=== PATIENT | female | born 1935 ===

== ENCOUNTER 2023-09-01 14:35 | Inpatient (IN) | payer MEDICARE, OTHER ==
--- NOTE | 2023-09-01 16:04 | ED ---
Dizziness HPI - General Stated Complaint: chest/back pain Time Seen by Provider: 09/01/23 15:40 Source: patient, RN notes reviewed Mode of arrival: wheelchair - History of Present Illness Initial Comments: 87-year-old female with a history of hypertension and vertigo and hyperlipidemia who had a dizzy episode yesterday while being out shopping. Around 6:30 PM she had some slight memory issues struggling to know where she was and who she was she did recently moved here from [place] about 2 weeks prior. She had 1 episode nausea and vomiting during the night had some restless sleep now appears to be back to normal except she complains of some epigastric and right upper quadrant discomfort. Patient is states that the pain seemed to radiate to the shoulder area. No fevers chills sweats diarrhea no other current complaints no focal weaknesses. MD Complaint: dizziness - Related Data Home Medications Medication Instructions Recorded Confirmed Acetaminophen [Tylenol Arthritis] 650 - 1,300 mg PO Q8H PRN 09/01/23 09/01/23 Benazepril HCl 20 mg PO DAILY 09/01/23 09/01/23 Bimatoprost [Lumigan 0.01% Ophth 1 drop BOTH EYES HS 09/01/23 09/01/23 Soln] Calcium(Unknown Dose) 1 tab PO DAILY 09/01/23 09/01/23 Carboxymethylcellulose Sodium 1 drop BOTH EYES HS 09/01/23 09/01/23 [Refresh Tears] Citalopram Hydrobromide [CeleXA] 40 mg PO DAILY 09/01/23 09/01/23 Magnesium(Unknown Dose) 1 tab PO DAILY 09/01/23 09/01/23 Meclizine [Antivert] 25 mg PO TID PRN 09/01/23 09/01/23 Omeprazole [PriLOSEC] 20 mg PO DAILY 09/01/23 09/01/23 Pravastatin Sodium [Pravachol] 40 mg PO HS 09/01/23 09/01/23 Vitamin D3(Unknown Dose) 1 tab PO DAILY 09/01/23 09/01/23 acetaZOLAMIDE [Diamox] 250 mg PO DAILY 09/01/23 09/01/23 Allergies Allergy/AdvReac Type Severity Reaction Status Date / Time advocado Allergy Unknown Uncoded 09/01/23 15:03 bananas Allergy Unknown Uncoded 09/01/23 15:03 walnuts Allergy Unknown Uncoded 09/01/23 15:03 Review of Systems ROS Statement: Those systems with pertinent positive or pertinent negative responses have been documented in the HPI. ROS Other: All systems not noted in ROS Statement are negative. Past Medical History Past Medical History: Hyperlipidemia, Hypertension History of Any Multi-Drug Resistant Organisms: None Reported Past Surgical History: Hysterectomy, Orthopedic Surgery, Tonsillectomy Additional Past Surgical History / Comment(s): dylan right leg Past Psychological History: No Psychological Hx Reported Smoking Status: Current every day smoker Past Alcohol Use History: None Reported Past Drug Use History: None Reported General Exam - General Exam Comments Initial Comments: This is a well-developed well-nourished awake alert oriented x 4 female General appearance: alert, in no apparent distress Head exam: Present: atraumatic, normocephalic, normal inspection Eye exam: Present: normal appearance, PERRL, EOMI. Absent: scleral icterus, conjunctival injection, periorbital swelling ENT exam: Present: mucous membranes dry Neck exam: Present: normal inspection, full ROM, other (No stridor JVD or bruits). Absent: tenderness, meningismus, lymphadenopathy Respiratory exam: Present: normal lung sounds bilaterally. Absent: respiratory distress, wheezes, rales, rhonchi, stridor Cardiovascular Exam: Present: regular rate, normal rhythm, normal heart sounds. Absent: systolic murmur, diastolic murmur, rubs, gallop, clicks GI/Abdominal exam: Present: soft, normal bowel sounds. Absent: distended, guarding, rebound, rigid Rectal exam: Present: deferred Extremities exam: Present: normal inspection, full ROM, normal capillary refill. Absent: tenderness, pedal edema, joint swelling, calf tenderness Back exam: Present: normal inspection Neurological exam: Present: alert, oriented X3, CN II-XII intact Psychiatric exam: Present: normal affect, normal mood Skin exam: Present: warm, dry, intact, normal color. Absent: rash Course Vital Signs 09/01/23 14:54 Temperature 97.9 F Pulse Rate 86 Respiratory 18 Rate Blood Pressure 191/83 O2 Sat by Pulse 96 Oximetry Medical Decision Making - Medical Decision Making Patient's workup is incomplete ultrasound results pending patient does feel improved at this time however. Was pt. sent in by a medical professional or institution (Dr., PA, HAND SCRAPER, urgent care, hospital, or [facility]...) When possible be specific @ -No Did you speak to anyone other than the patient for history (EMS, parent, family, police, friend...)? What history was obtained from this source @ -The patient's daughter Did you review nursing and triage notes (agree or disagree)? Why? @ -I reviewed and agree with nursing and triage notes Were old charts reviewed (outside hosp., previous admission, EMS record, old EKG, old radiological studies, urgent care reports/EKG's, [facility] records)? Report findings @ -No old charts billable for review reviewed Differential Diagnosis (chest pain, altered mental status, abdominal pain women, abdominal pain men, vaginal bleeding, weakness, fever, dyspnea, syncope, headache, dizziness, GI bleed, back pain, seizure, CVA, palpatations, mental health, musculoskeletal)? @ -Vertigo, abdominal pain EKG interpreted by me (3pts min.). @ -As above EKG interpreted by me sinus rhythm with occasional ectopic premature complexes rate 81 parable 150 QRS duration 76 QT/QTc 340/378 nonspecific T wave configuration CT interpreted by me (1pt min.). @ -None done U/S interpreted by me (1pt. min.). @ -None done What testing was considered but not performed or refused? (CT, X-rays, U/S, labs)? Why? @ -None What meds were considered but not given or refused? Why? @ -None Did you discuss the management of the patient with other professionals (professionals i.e. RACHEL Phipps, HAND SCRAPER, lab, RT, psych nurse, social secretary, court officer, teacher, budget officer, case consultant)? Give summary @ -Eloisa Field covering for Dr. Zelaya Was smoking cessation discussed for >3mins.? @ -No Was critical care preformed (if so, how long)? @ -No Were there social determinants of health that impacted care today? How? (Homelessness, low income, unemployed, alcoholism, drug addiction, transportation, low edu. Level, literacy, decrease access to med. care, [facility], re hab)? @ -Just moved from [place] 2 weeks ago Was there de-escalation of care discussed even if they declined (Discuss DNR or withdrawal of care, Hospice)? DNR status @ -No What co-morbidities impacted this encounter? (DM, HTN, Smoking, COPD, CAD, Cancer, CVA, ARF, Chemo, Hep., AIDS, mental health diagnosis, sleep apnea, morbid obesity)? @ -None Was patient admitted / discharged? Hospital course, mention meds given and route, prescriptions, significant lab abnormalities, going to OR and other pertinent info. @ -Hospital course will be admitted for inpatient treatment of persistent vomiting and abdominal pain surgical consultation Undiagnosed new problem with uncertain prognosis? @ -No Drug Therapy requiring intensive monitoring for toxicity (Heparin, Nitro, Insulin, Cardizem)? @ -No Were any procedures done? @ -No Diagnosis/symptom? @ -Estrada pain, hypomagnesemia, hyperbilirubinemia, vertigo Acute, or Chronic, or Acute on Chronic? @ -Acute Uncomplicated (without systemic symptoms) or Complicated (systemic symptoms)? @ -Default Side effects of treatment? @ -No Exacerbation, Progression, or Severe Exacerbation? @ -No Poses a threat to life or bodily function? How? (Chest pain, [place], CO, pneumonia, PE, COPD, DKA, ARF, appy, cholecystitis, CVA, Diverticulitis, Homicidal, Suicidal, threat to staff... and all critical care pts) @ -No - Lab Data Result diagrams: 09/01/23 16:01 09/01/23 16:01 Lab Results 09/01/23 09/01/23 09/01/23 Range/Units 16:01 16:01 16:01 WBC 9.7 (3.8-10.6) k/uL RBC 4.33 (3.80-5.40) m/uL Hgb 14.6 (11.4-16.0) gm/dL Hct 43.8 (34.0-46.0) % MCV 101.0 H (80.0-100.0) fL MCH 33.6 (25.0-35.0) pg MCHC 33.3 (31.0-37.0) g/dL RDW 12.0 (11.5-15.5) % Plt Count 168 (150-450) k/uL MPV 6.7 Neutrophils % 90 % Lymphocytes % 3 % Monocytes % 6 % Eosinophils % 0 % Basophils % 0 % Neutrophils # 8.7 H (1.3-7.7) k/uL Lymphocytes # 0.3 L (1.0-4.8) k/uL Monocytes # 0.6 (0-1.0) k/uL Eosinophils # 0.0 (0-0.7) k/uL Basophils # 0.0 (0-0.2) k/uL Sodium 135 L (137-145) mmol/L Potassium 4.0 (3.5-5.1) mmol/L Chloride 103 (98-107) mmol/L Carbon Dioxide 26 (22-30) mmol/L Anion Gap 6 mmol/L BUN 15 (7-17) mg/dL Creatinine 0.57 (0.52-1.04) mg/dL Est GFR (CKD-EPI)AfAm >90 (>60 ml/min/1.73 sqM) Est GFR (CKD-EPI)NonAf 84 (>60 ml/min/1.73 sqM) Glucose 126 H (74-99) mg/dL Calcium 9.8 (8.4-10.2) mg/dL Magnesium 1.5 L (1.6-2.3) mg/dL Total Bilirubin 1.5 H (0.2-1.3) mg/dL AST 56 H (14-36) U/L ALT 26 (4-34) U/L Alkaline Phosphatase 71 (38-126) U/L Creatine Kinase 59 (30-135) U/L Troponin I <0.012 (0.000-0.034) ng/mL Total Protein 7.2 (6.3-8.2) g/dL Albumin 4.4 (3.5-5.0) g/dL Lipase 140 (23-300) U/L Urine Color Urine Appearance (Clear) Urine pH (5.0-8.0) Ur Specific [place] (1.001-1.035) Urine Protein (Negative) Urine Glucose (UA) (Negative) Urine Ketones (Negative) Urine Blood (Negative) Urine Nitrite (Negative) Urine Bilirubin (Negative) Urine Urobilinogen (<2.0) mg/dL Ur Leukocyte Esterase (Negative) Urine RBC (0-5) /hpf Urine WBC (0-5) /hpf Ur Squamous Epith Cells (0-4) /hpf Urine Mucus (None) /hpf 09/01/23 Range/Units 17:07 WBC (3.8-10.6) k/uL RBC (3.80-5.40) m/uL Hgb (11.4-16.0) gm/dL Hct (34.0-46.0) % MCV (80.0-100.0) fL MCH (25.0-35.0) pg MCHC (31.0-37.0) g/dL RDW (11.5-15.5) % Plt Count (150-450) k/uL MPV Neutrophils % % Lymphocytes % % Monocytes % % Eosinophils % % Basophils % % Neutrophils # (1.3-7.7) k/uL Lymphocytes # (1.0-4.8) k/uL Monocytes # (0-1.0) k/uL Eosinophils # (0-0.7) k/uL Basophils # (0-0.2) k/uL Sodium (137-145) mmol/L Potassium (3.5-5.1) mmol/L Chloride (98-107) mmol/L Carbon Dioxide (22-30) mmol/L Anion Gap mmol/L BUN (7-17) mg/dL Creatinine (0.52-1.04) mg/dL Est GFR (CKD-EPI)AfAm (>60 ml/min/1.73 sqM) Est GFR (CKD-EPI)NonAf (>60 ml/min/1.73 sqM) Glucose (74-99) mg/dL Calcium (8.4-10.2) mg/dL Magnesium (1.6-2.3) mg/dL Total Bilirubin (0.2-1.3) mg/dL AST (14-36) U/L ALT (4-34) U/L Alkaline Phosphatase (38-126) U/L Creatine Kinase (30-135) U/L Troponin I (0.000-0.034) ng/mL Total Protein (6.3-8.2) g/dL Albumin (3.5-5.0) g/dL Lipase (23-300) U/L Urine Color Yellow Urine Appearance Clear (Clear) Urine pH 6.5 (5.0-8.0) Ur Specific [place] 1.018 (1.001-1.035) Urine Protein 1+ H (Negative) Urine Glucose (UA) Negative (Negative) Urine Ketones 2+ H (Negative) Urine Blood Small H (Negative) Urine Nitrite Negative (Negative) Urine Bilirubin Negative (Negative) Urine Urobilinogen 2.0 (<2.0) mg/dL Ur Leukocyte Esterase Negative (Negative) Urine RBC 12 H (0-5) /hpf Urine WBC 1 (0-5) /hpf Ur Squamous Epith Cells <1 (0-4) /hpf Urine Mucus Rare H (None) /hpf Disposition Clinical Impression: Abdominal pain, Hypomagnesemia, Hyperbilirubinemia, Biliary colic, Nausea Disposition: ADMITTED IP TO THIS [facility] Condition: Fair Referrals: None,Stated [Primary Care Provider] - 1-2 days Time of Disposition: 21:15 Decision Date: 09/01/23 Decision Time: 21:15
[2023-09-01 16:14] LABS: Basophils % (A) 0 %; Eosinophils % (A) 0 %; HCT 43.8 % (34.0-46.0); HGB 14.6 gm/dL (11.4-16.0); Lymphocytes # (A) 0.3 k/uL (1.0-4.8); Lymphocytes % (A) 3 %; MCH 33.6 pg (25.0-35.0); MCHC 33.3 g/dL (31.0-37.0); Mean Platelet Volume 6.7; Monocytes # (A) 0.6 k/uL (0-1.0); Monocytes % (A) 6 %; Neutrophils # (A) 8.7 k/uL (1.3-7.7); Neutrophils % (A) 90 %; Platelet Count 168 k/uL (150-450); RBC 4.33 m/uL (3.80-5.40); WBC 9.7 k/uL (3.8-10.6)
[2023-09-01 16:56] LABS: ALT 26 U/L (4-34); AST 56 U/L (14-36); African American GFR (CKD) >90 (>60 ml/min/1.73 sqM); Albumin 4.4 g/dL (3.5-5.0); Alkaline Phosphatase 71 U/L (38-126); Anion Gap 6 mmol/L; Blood Urea Nitrogen 15 mg/dL (7-17); Calcium 9.8 mg/dL (8.4-10.2); Carbon Dioxide 26 mmol/L (22-30); Chloride 103 mmol/L (98-107); Creatine Kinase 59 U/L (30-135); Glucose 126 mg/dL (74-99); Lipase 140 U/L (23-300); Magnesium 1.5 mg/dL (1.6-2.3); Non-African American GFR(CKD) 84 (>60 ml/min/1.73 sqM); Sodium 135 mmol/L (137-145); Total Bilirubin 1.5 mg/dL (0.2-1.3); Total Protein 7.2 g/dL (6.3-8.2)
[2023-09-01 17:25] LABS: Appearance,Urine Clear (Clear); Bilirubin,Urine Negative (Negative); Blood,Urine Small (Negative); Color,Urine Yellow; Glucose,Urine (UA) Negative (Negative); Ketones,Urine 2+ (Negative); Leukocyte Esterase,Urine Negative (Negative); Mucus,Urine Rare /hpf; Nitrite,Urine Negative (Negative); PH, Urine 6.5 (5.0-8.0); Protein,Urine 1+ (Negative); RBC,Urine 12 /hpf (0-5); Specific Gravity,Urine 1.018 (1.001-1.035); Squamous Epithelial Cell,Urine <1 /hpf (0-4); WBC,Urine 1 /hpf (0-5)
[2023-09-01] MEDS: ONDANSETRON 4 MG/2 ML VIAL IVP STA (17:51)
[2023-09-01] MEDS: SODIUM CHLORIDE 0.9% 1,000 ML IV STA (17:54)
--- NOTE | 2023-09-01 19:23 | XR ---
EXAMINATION TYPE: XR chest 2V DATE OF EXAM: 09/01/2023 4:27 PM CLINICAL INDICATION:Female, 87 years old with history of Abdominal pain; [facility] COMPARISON: None TECHNIQUE: XR chest 2V. Frontal and lateral views of the chest.. FINDINGS: Lines/Tubes/Devices: No indwelling lines are seen. Heart/mediastinum: Heart appears mildly enlarged. The aorta shows atherosclerotic calcification and appears tortuous. Pulmonary vascularity: Not increased, Lungs/Pleura: There is no evidence of pleural effusion, focal consolidation, or pneumothorax. Minima l platelike atelectasis or linear scarring in the midlung zones. Background scattered chronic senesce nt changes. Musculoskeletal: No acute osseous abnormality demonstrated in the limits of the exam. Multilevel deg enerative changes of the spine with some straightening of the upper thoracic kyphosis and slight exag geration of the lower thoracic kyphosis. Other findings: No suggestion of subdiaphragmatic free air. IMPRESSION: No acute cardiopulmonary abnormality.
--- NOTE | 2023-09-01 19:30 | XR ---
EXAMINATION TYPE: XR KUB portable DATE OF EXAM: 09/01/2023 4:27 PM CLINICAL INDICATION:Female, 87 years old with history of Abdominal pain; [facility] COMPARISON: None. TECHNIQUE: Upright radiographic view/s of the abdomen/pelvis obtained. FINDINGS: Exam limited by patient body habitus. No evidence of pneumoperitoneum. Pattern is nonspecific, likely nonobstructive without dilated loops of small bowel seen. There is mil d to moderate stool in the colon mixed with some gas, greatest in the rectum and right colon. Multilevel degenerative changes of the spine with prominent lumbar levocurvature. No pathologic calci fications can be seen. Abdominal aortic calcification is suspected. Several surgical clips project ov er the GE junction region. IMPRESSION: 1. Nonspecific, likely nonobstructive bowel gas pattern. 2. Mild to moderate stool in the right colon and rectum. 3. No free air detected.
[2023-09-01] MEDS: MAGNESIUM SULFATE-D5W PMX 1 GM in DEXTROSE/WATER 1 100ML.BAG IVPB ONE (19:54)
[2023-09-01] MEDS ORDERED: ONDANSETRON 4 MG/2 ML VIAL IVP PRN (21:15)
[2023-09-01] MEDS ORDERED: NALOXONE 0.4 MG/ML 1 ML VIAL IV PRN (21:15)
[2023-09-01] MEDS: FAMOTIDINE 20 MG/2 ML VIAL IV STA (21:34)
--- NOTE | 2023-09-01 22:58 | US ---
EXAMINATION TYPE: US gallbladder DATE OF EXAM: 09/01/2023 COMPARISON: NONE CLINICAL INDICATION: Female, 87 years old with history of Right upper quadrant abdominal pain; Nausea , pain TECHNIQUE: Multiple sonographic images of the right upper quadrant are obtained. FINDINGS: EXAM MEASUREMENTS: Liver Length: 14.4 cm Gallbladder Wall: 0.2 cm CBD: 1.3 cm Right Kidney: 9.1 x 3.5 x 4.5 cm INCIDENT MANAGER NOTES: Pancreas: Obscured by bowel gas Liver: Limited views due to overlying bowel gas, visualized portions appeared wnl Gallbladder: Distended with probable sludge Evidence for sonographic Tate's sign: No CBD: Dilated Right Kidney: No evidence of hydro IMPRESSION: 1. Pancreas obscured by bowel gas. 2. Gallbladder is distended with probable intraluminal sludge. No sonographic Tate's sign elicited . 3. Dilated CBD. Correlate clinically, with LFTs.
[2023-09-02] MEDS: KETOROLAC 15 MG/ML 1 ML VIAL IVP PRN (01:49)
[2023-09-02] MEDS: MORPHINE SULFATE 4 MG/ML SYRINGE IVP STA (02:17)
[2023-09-02 05:41] LABS: ALT 23 U/L (4-34); AST 36 U/L (14-36); African American GFR (CKD) >90 (>60 ml/min/1.73 sqM); Albumin 3.9 g/dL (3.5-5.0); Albumin/Globulin Ratio 1.6; Alkaline Phosphatase 67 U/L (38-126); Anion Gap 5 mmol/L; Blood Urea Nitrogen 14 mg/dL (7-17); Calcium 8.6 mg/dL (8.4-10.2); Carbon Dioxide 26 mmol/L (22-30); Chloride 101 mmol/L (98-107); Globulin 2.5 g/dL; Glucose 118 mg/dL (74-99); Non-African American GFR(CKD) 81 (>60 ml/min/1.73 sqM); Potassium 3.8 mmol/L (3.5-5.1); Sodium 132 mmol/L (137-145); Total Bilirubin 1.5 mg/dL (0.2-1.3); Total Protein 6.4 g/dL (6.3-8.2)
--- NOTE | 2023-09-02 11:01 | P.CRDCN ---
History of Present Illness History of present illness: HISTORY OF PRESENT ILLNESS: This is a 87-year-old female with a past medical history significant for hypertension and hyperlipidemia. Patient does not follow with a manager business planning. We have been asked to see the patient in consultation for elevated troponins. Patient examined at the bedside in the emergency room. Patient is confused at the time of examination and is a poor historian. There is no family present. According to the ER documentation, the patient initially presented to hospital with an episode of dizziness. Patient was also complaining of nausea and vomiting with right upper quadrant abdominal pain. The patient continues to report abdominal pain at the time of examination. She denies any chest pain or pressure. She denies any shortness of breath. Vital signs are stable. Patient is febrile this morning with a fever of 101.1. DIAGNOSTICS: - EKG reveals sinus mechanism with nonspecific ST-T wave changes - Chest xray negative for acute process - Gallbladder ultrasound, gallbladder is distended with probable intraluminal sludge. No sonographic Tate sign elicited. Common bile duct dilated. - Laboratory data: WBC 9.7. Hemoglobin 14.6. Platelet count 168. Sodium 132. Potassium 3.8. BUN 14. Creatinine 0.65. Magnesium 1.5. Bilirubin 1.5. AST 56. ALT 26. Troponin 0.012. 0.016. 0.044. - Current home cardiac medications include pravastatin 40 mg at night and benazepril 20 mg daily. REVIEW OF SYSTEMS: At the time of my exam: CONSTITUTIONAL: Denies fever or chills. HEENT: Denies blurred vision, vision changes, or eye pain. Denies hemoptysis CARDIOVASCULAR: Denies chest pain. Denies orthopnea. Denies PND. Denies palpitations RESPIRATORY: Denies shortness of breath. GASTROINTESTINAL: Reports abdominal pain. Denies nausea or vomiting. HEMATOLOGIC: Denies bleeding disorders. GENITOURINARY: Denies any blood in urine. SKIN: Denies pruitis. Denies rash. PHYSICAL EXAM: VITAL SIGNS: Reviewed. GENERAL: Well-developed in no acute distress. HEENT: Head is normocephalic. Pupils are equal, round. Sclerae anicteric. Mucous membranes of the mouth are moist. Neck supple. No JVD or thyromegaly LUNGS: Respirations even and unlabored. Lungs essentially clear to auscultation bilaterally. HEART: Regular rate and rhythm. S1 and S2 heard. ABDOMEN: Soft. Nondistended. Tenderness upon palpation EXTREMITIES: Normal range of motion. No clubbing or cyanosis. Peripheral pulses intact. No lower extremity edema NEUROLOGIC: Awake and alert. Oriented x 3. ASSESSMENT: Febrile illness Abdominal pain with possible acute cholecystitis Abnormal troponin, likely secondary to above, no evidence of acute coronary syndrome Hypomagnesemia Hypertension Hyperlipidemia PLAN: An acute coronary but has been ruled out Obtain 2D echo to assess cardiac structure and function Resume home cardiac medications Patient is at moderate to high risk to undergo surgery secondary to age and comorbidities. However there are no absolute contraindications for patient to proceed Further recommendations pending patient course Nurse practitioner note has been reviewed by physician. Signing provider agrees with the documented findings, assessment, and plan of care documented by CORRECTION OFFICER as a scribe. Past Medical History Past Medical History: Hyperlipidemia, Hypertension History of Any Multi-Drug Resistant Organisms: None Reported Past Surgical History: Hysterectomy, Orthopedic Surgery, Tonsillectomy Additional Past Surgical History / Comment(s): dylan right leg Past Psychological History: No Psychological Hx Reported Smoking Status: Current every day smoker Past Alcohol Use History: None Reported Past Drug Use History: None Reported Medications and Allergies Home Medications Medication Instructions Recorded Confirmed Type Acetaminophen [Tylenol Arthritis] 650 - 1,300 mg PO Q8H PRN 09/01/23 09/01/23 History Benazepril HCl 20 mg PO DAILY 09/01/23 09/01/23 History Bimatoprost [Lumigan 0.01% Ophth 1 drop BOTH EYES HS 09/01/23 09/01/23 History Soln] Calcium(Unknown Dose) 1 tab PO DAILY 09/01/23 09/01/23 History Carboxymethylcellulose Sodium 1 drop BOTH EYES HS 09/01/23 09/01/23 History [Refresh Tears] Citalopram Hydrobromide [CeleXA] 40 mg PO DAILY 09/01/23 09/01/23 History Magnesium(Unknown Dose) 1 tab PO DAILY 09/01/23 09/01/23 History Meclizine [Antivert] 25 mg PO TID PRN 09/01/23 09/01/23 History Omeprazole [PriLOSEC] 20 mg PO DAILY 09/01/23 09/01/23 History Pravastatin Sodium [Pravachol] 40 mg PO HS 09/01/23 09/01/23 History Vitamin D3(Unknown Dose) 1 tab PO DAILY 09/01/23 09/01/23 History acetaZOLAMIDE [Diamox] 250 mg PO DAILY 09/01/23 09/01/23 History Allergies Allergy/AdvReac Type Severity Reaction Status Date / Time advocado Allergy Unknown Uncoded 09/01/23 15:03 bananas Allergy Unknown Uncoded 09/01/23 15:03 walnuts Allergy Unknown Uncoded 09/01/23 15:03 Physical Exam Vitals: Vital Signs Temp Pulse Pulse Resp BP Pulse Ox 09/02/23 10:00 101.1 F H 100 16 124/73 98 09/02/23 09:00 94 16 177/83 98 09/02/23 08:06 77 09/02/23 08:00 77 16 152/81 95 09/02/23 07:00 70 16 150/72 94 L 09/02/23 06:39 73 16 137/68 94 L 09/02/23 06:31 97.2 F L 09/02/23 02:56 92 16 136/74 95 09/02/23 01:51 92 18 193/98 95 09/01/23 21:30 62 20 122/65 98 09/01/23 14:54 97.9 F 86 18 191/83 96 Results 09/01/23 16:01 09/02/23 03:54 Cardiac Enzymes 09/01/23 09/01/23 09/01/23 Range/Units 16:01 16:01 23:56 AST 56 H (14-36) U/L Troponin I <0.012 0.016 (0.000-0.034) ng/mL 09/02/23 09/02/23 Range/Units 03:54 03:54 AST 36 (14-36) U/L Troponin I 0.044 H* (0.000-0.034) ng/mL CBC 09/01/23 Range/Units 16:01 WBC 9.7 (3.8-10.6) k/uL RBC 4.33 (3.80-5.40) m/uL Hgb 14.6 (11.4-16.0) gm/dL Hct 43.8 (34.0-46.0) % Plt Count 168 (150-450) k/uL Comprehensive Metabolic Panel 09/01/23 09/02/23 Range/Units 16:01 03:54 Sodium 135 L 132 L (137-145) mmol/L Potassium 4.0 3.8 (3.5-5.1) mmol/L Chloride 103 101 (98-107) mmol/L Carbon Dioxide 26 26 (22-30) mmol/L BUN 15 14 (7-17) mg/dL Creatinine 0.57 0.65 (0.52-1.04) mg/dL Glucose 126 H 118 H (74-99) mg/dL Calcium 9.8 8.6 (8.4-10.2) mg/dL AST 56 H 36 (14-36) U/L ALT 26 23 (4-34) U/L Alkaline Phosphatase 71 67 (38-126) U/L Total Protein 7.2 6.4 (6.3-8.2) g/dL Albumin 4.4 3.9 (3.5-5.0) g/dL Current Medications Generic Name Dose Route Start Last Admin Trade Name Freq PRN Reason Stop Dose Admin Artificial Tears 1 drops 09/02/23 21:00 Artificial Tears-Hypromellose Drops 15 Ml Btl BOTH EYES [facility] Sodium Chloride 1,000 mls @ 130 mls/hr 09/01/23 21:15 Saline 0.9% IV .[id number] [facility] Ketorolac Tromethamine 15 mg 09/01/23 21:15 09/02/23 01:49 Ketorolac 15 Mg/Ml 1 Ml Vial IVP 09/04/23 21:17 15 mg Q6HR PRN Administration Moderate Pain (Scale 4 to 6) Latanoprost 1 drops 09/02/23 21:00 Latanoprost 0.005% Ophth Drops 2.5 Ml Btl BOTH EYES [facility] Lisinopril 20 mg 09/02/23 09:00 Lisinopril 20 Mg Tab PO DAILY JOSSELYN Naloxone HCl 0.2 mg 09/01/23 21:15 Naloxone 0.4 Mg/Ml 1 Ml Vial IV Q2M PRN Opioid Reversal Ondansetron HCl 4 mg 09/01/23 21:15 Ondansetron 4 Mg/2 Ml Vial IVP Q8HR PRN Nausea And Vomiting Pravastatin Sodium 40 mg 09/02/23 21:00 Pravastatin Sodium 40 Mg Tab PO HS [facility] 09/01/23 16:01 09/02/23 03:54
[2023-09-02] MEDS: lisinopriL 20 MG TAB PO SCH (11:11)
--- NOTE | 2023-09-02 13:08 | P.GSCN ---
History of Present Illness Consult date: 09/02/23 History of present illness: CHIEF COMPLAINT: Altered mental status HISTORY OF PRESENT ILLNESS: This is a 87-year-old female who presented with altered mental status and abdominal pain. History was obtained from patient's chart. Patient is confused, but she is able to say she has abdominal pain. Per patient's chart she had been shopping yesterday and had episode of dizziness. Around 630 last night patient had memory issues with difficulty of knowing where she was and who she was. She had an episode of vomiting and nausea. She had been complaining of right upper quadrant and epigastric pain. Patient did have an elevated troponin. She has been evaluated by cardiology. They reported no contraindication for surgery but considered patient to moderate risk for surgery. Patient's ultrasound had reported gallbladder is distended with probable intraluminal sludge. Dilated CBD, 1.3 cm. Patient had mildly elevated AST and total bilirubin. Patient does have pain to the right upper quadrant and remains confused. Patient did have fevers this morning of 101.1. Past surgical history includes hysterectomy. No blood thinners reported. PAST MEDICAL HISTORY: Hyperlipidemia, hypertension PAST SURGICAL HISTORY: Hysterectomy, Orthopedic Surgery, Tonsillectomy MEDICATIONS: See below ALLERGIES: See below SOCIAL HISTORY: No illicit drug use. REVIEW OF SYSTEMS: CONSTITUTIONAL: Denies fever or chills. HEENT: Denies blurred vision, vision changes, or eye pain. Denies hemoptysis CARDIOVASCULAR: Denies chest pain or pressure. RESPIRATORY: No shortness of breath. GASTROINTESTINAL: See HPI for pertinent findings HEMATOLOGIC: Denies bleeding disorders. GENITOURINARY: Denies any blood in urine or increased urinary frequency. SKIN: Denies pruitis. Denies rash. PHYSICAL EXAM: VITAL SIGNS: Reviewed GENERAL: no acute distress. HEENT: No sclera icterus. Extraocular movements grossly intact. Moist buccal mucosa. Head is atraumatic, normocephalic. No nasal drainage. ABDOMEN: Soft. Nondistended. Right upper quadrant tenderness with palpation NEUROLOGIC: Awake. Confused LABORATORY DATA: WBC 9.7 Hgb 14.6 platelets 168 Sodium is 132 potassium 3.8 creatinine 0.65 Magnesium 1.5 Total bilirubin 1.5 AST 56 down to 36 ALT 23 alk phos 67 Troponin 0.044 lipase 140 IMAGING: Gallbladder ultrasound reports gallbladder is distended with probable intraluminal sludge. No Tate sign elicited. Dilated CBD. KUB x-ray nonspecific likely nonobstructive bowel gas pattern. Mild to moderate stool in the right colon and rectum. No free air to detected Chest x-ray reports no acute cardiopulmonary abnormality ASSESSMENT: 1. Acute cholecystitis. Ultrasound reported distended gallbladder with intraluminal sludge and dilated CBD. 2. Mildly elevated AST and total bilirubin 3. Hypomagnesemia 4. Mildly elevated troponin. Evaluated by cardiology PLAN: -Patient scheduled for laparoscopic cholecystectomy today with Dr. Blancas -Keep patient n.p.o. -Patient having fevers. Antibiotics started. -Continue IV fluids -continue supportive care -Repeat magnesium level -Continue pain management Physician Dog Handler note has been reviewed by physician. Signing provider agrees with the documented findings, assessment, and plan of care. Past Medical History Past Medical History: Hyperlipidemia, Hypertension History of Any Multi-Drug Resistant Organisms: None Reported Past Surgical History: Hysterectomy, Orthopedic Surgery, Tonsillectomy Additional Past Surgical History / Comment(s): dylan right leg Past Psychological History: No Psychological Hx Reported Smoking Status: Current every day smoker Past Alcohol Use History: None Reported Past Drug Use History: None Reported Medications and Allergies Home Medications Medication Instructions Recorded Confirmed Type Acetaminophen [Tylenol Arthritis] 650 - 1,300 mg PO Q8H PRN 09/01/23 09/01/23 History Benazepril HCl 20 mg PO DAILY 09/01/23 09/01/23 History Bimatoprost [Lumigan 0.01% Ophth 1 drop BOTH EYES HS 09/01/23 09/01/23 History Soln] Calcium(Unknown Dose) 1 tab PO DAILY 09/01/23 09/01/23 History Carboxymethylcellulose Sodium 1 drop BOTH EYES HS 09/01/23 09/01/23 History [Refresh Tears] Citalopram Hydrobromide [CeleXA] 40 mg PO DAILY 09/01/23 09/01/23 History Magnesium(Unknown Dose) 1 tab PO DAILY 09/01/23 09/01/23 History Meclizine [Antivert] 25 mg PO TID PRN 09/01/23 09/01/23 History Omeprazole [PriLOSEC] 20 mg PO DAILY 09/01/23 09/01/23 History Pravastatin Sodium [Pravachol] 40 mg PO HS 09/01/23 09/01/23 History Vitamin D3(Unknown Dose) 1 tab PO DAILY 09/01/23 09/01/23 History acetaZOLAMIDE [Diamox] 250 mg PO DAILY 09/01/23 09/01/23 History Allergies Allergy/AdvReac Type Severity Reaction Status Date / Time advocado Allergy Unknown Uncoded 09/01/23 15:03 bananas Allergy Unknown Uncoded 09/01/23 15:03 walnuts Allergy Unknown Uncoded 09/01/23 15:03 Surgical - Exam Vital Signs Temp Pulse Resp BP Pulse Ox 97.9 F 86 18 191/83 96 09/01/23 14:54 09/01/23 14:54 09/01/23 14:54 09/01/23 14:54 09/01/23 14:54 Results - Labs 09/01/23 16:01 09/02/23 03:54 Abnormal Lab Results - Last 24 Hours (Table) 09/01/23 09/01/23 09/01/23 Range/Units 16:01 16:01 17:07 MCV 101.0 H (80.0-100.0) fL Neutrophils # 8.7 H (1.3-7.7) k/uL Lymphocytes # 0.3 L (1.0-4.8) k/uL Sodium 135 L (137-145) mmol/L Glucose 126 H (74-99) mg/dL Magnesium 1.5 L (1.6-2.3) mg/dL Total Bilirubin 1.5 H (0.2-1.3) mg/dL AST 56 H (14-36) U/L Troponin I (0.000-0.034) ng/mL Urine Protein 1+ H (Negative) Urine Ketones 2+ H (Negative) Urine Blood Small H (Negative) Urine RBC 12 H (0-5) /hpf Urine Mucus Rare H (None) /hpf 09/02/23 09/02/23 Range/Units 03:54 03:54 MCV (80.0-100.0) fL Neutrophils # (1.3-7.7) k/uL Lymphocytes # (1.0-4.8) k/uL Sodium 132 L (137-145) mmol/L Glucose 118 H (74-99) mg/dL Magnesium (1.6-2.3) mg/dL Total Bilirubin 1.5 H (0.2-1.3) mg/dL AST (14-36) U/L Troponin I 0.044 H* (0.000-0.034) ng/mL Urine Protein (Negative) Urine Ketones (Negative) Urine Blood (Negative) Urine RBC (0-5) /hpf Urine Mucus (None) /hpf Diabetes panel 09/01/23 09/02/23 Range/Units 16:01 03:54 Sodium 135 L 132 L (137-145) mmol/L Potassium 4.0 3.8 (3.5-5.1) mmol/L Chloride 103 101 (98-107) mmol/L Carbon Dioxide 26 26 (22-30) mmol/L BUN 15 14 (7-17) mg/dL Creatinine 0.57 0.65 (0.52-1.04) mg/dL Glucose 126 H 118 H (74-99) mg/dL Calcium 9.8 8.6 (8.4-10.2) mg/dL AST 56 H 36 (14-36) U/L ALT 26 23 (4-34) U/L Alkaline Phosphatase 71 67 (38-126) U/L Total Protein 7.2 6.4 (6.3-8.2) g/dL Albumin 4.4 3.9 (3.5-5.0) g/dL Calcium panel 09/01/23 09/02/23 Range/Units 16:01 03:54 Calcium 9.8 8.6 (8.4-10.2) mg/dL Albumin 4.4 3.9 (3.5-5.0) g/dL Pituitary panel 09/01/23 09/02/23 Range/Units 16:01 03:54 Sodium 135 L 132 L (137-145) mmol/L Potassium 4.0 3.8 (3.5-5.1) mmol/L Chloride 103 101 (98-107) mmol/L Carbon Dioxide 26 26 (22-30) mmol/L BUN 15 14 (7-17) mg/dL Creatinine 0.57 0.65 (0.52-1.04) mg/dL Glucose 126 H 118 H (74-99) mg/dL Calcium 9.8 8.6 (8.4-10.2) mg/dL Adrenal panel 09/01/23 09/02/23 Range/Units 16:01 03:54 Sodium 135 L 132 L (137-145) mmol/L Potassium 4.0 3.8 (3.5-5.1) mmol/L Chloride 103 101 (98-107) mmol/L Carbon Dioxide 26 26 (22-30) mmol/L BUN 15 14 (7-17) mg/dL Creatinine 0.57 0.65 (0.52-1.04) mg/dL Glucose 126 H 118 H (74-99) mg/dL Calcium 9.8 8.6 (8.4-10.2) mg/dL Total Bilirubin 1.5 H 1.5 H (0.2-1.3) mg/dL AST 56 H 36 (14-36) U/L ALT 26 23 (4-34) U/L Alkaline Phosphatase 71 67 (38-126) U/L Total Protein 7.2 6.4 (6.3-8.2) g/dL Albumin 4.4 3.9 (3.5-5.0) g/dL
--- NOTE | 2023-09-02 13:24 | P.HPIM ---
History of Present Illness Patient pleasant 87-year-old female came in with altered mental status and also having abdominal pain bilateral upper quadrants patient has a positive Tate sign on the right side patient had a CT scan of the abdomen which showed biliary sludge and patient was evaluated by general surgery, planning on laparoscopic cholecystectomy. Patient has 2 sets of troponins that are within normal limits with probably slightly elevated because of future cardiology was consulted. Cardiology evaluated the patient this elevation is probably secondary to infection. Patient had a low-grade fever today. Patient is alert oriented x 3 when I evaluate the patient patient confusion resolved patient received Zosyn and is presently on Zosyn at this time. He is Negative except for the chest. REVIEW OF SYSTEMS: CONSTITUTIONAL: No fever, no malaise, no fatigue. HEENT: No recent visual problems or hearing problems. Denied any sore throat. CARDIOVASCULAR: No chest pain, orthopnea, PND, no palpitations, no syncope. PULMONARY: No shortness of breath, no cough, no hemoptysis. GASTROINTESTINAL: As mentioned in HPI NEUROLOGICAL: No headaches, no weakness, no numbness. HEMATOLOGICAL: Denies any bleeding or petechiae. GENITOURINARY: Denies any burning micturition, frequency, or urgency. MUSCULOSKELETAL/RHEUMATOLOGICAL: Denies any joint pain, swelling, or any muscle pain. ENDOCRINE: Denies any polyuria or polydipsia. The rest of the 14-point review of systems is negative. PHYSICAL EXAMINATION: GENERAL: The patient is alert and oriented x3, not in any acute distress. Well developed, well nourished. HEENT: Pupils are round and equally reacting to light. EOMI. No scleral icterus. No conjunctival pallor. Normocephalic, atraumatic. No pharyngeal erythema. No thyromegaly. CARDIOVASCULAR: S1 and S2 present. No murmurs, rubs, or gallops. PULMONARY: Chest is clear to auscultation, no wheezing or crackles. ABDOMEN: Soft, tenderness in the right upper quadrant positive Tate sign, nondistended, normoactive bowel sounds. No palpable organomegaly. MUSCULOSKELETAL: No joint swelling or deformity. EXTREMITIES: No cyanosis, clubbing, or pedal edema. NEUROLOGICAL: Gross neurological examination did not reveal any focal deficits. SKIN: No rashes. Assessment and plan -Sepsis: Possibly secondary to biliary sludge cholecystitis, continue with IV Zosyn and patient probably will need cholecystectomy General surgery evaluation -Mild elevation of troponin: Secondary to sepsis further intervention as per cardiology -Hypertension -Hypomagnesemia magnesium will be replaced -Hyperlipidemia DVT prophylaxis: Lovenox -GI prophylaxis Pepcid Past Medical History Past Medical History: Hyperlipidemia, Hypertension History of Any Multi-Drug Resistant Organisms: None Reported Past Surgical History: Hysterectomy, Orthopedic Surgery, Tonsillectomy Additional Past Surgical History / Comment(s): dylan right leg Past Psychological History: No Psychological Hx Reported Smoking Status: Current every day smoker Past Alcohol Use History: None Reported Past Drug Use History: None Reported Medications and Allergies Home Medications Medication Instructions Recorded Confirmed Type Acetaminophen [Tylenol Arthritis] 650 - 1,300 mg PO Q8H PRN 09/01/23 09/01/23 History Benazepril HCl 20 mg PO DAILY 09/01/23 09/01/23 History Bimatoprost [Lumigan 0.01% Ophth 1 drop BOTH EYES HS 09/01/23 09/01/23 History Soln] Calcium(Unknown Dose) 1 tab PO DAILY 09/01/23 09/01/23 History Carboxymethylcellulose Sodium 1 drop BOTH EYES HS 09/01/23 09/01/23 History [Refresh Tears] Citalopram Hydrobromide [CeleXA] 40 mg PO DAILY 09/01/23 09/01/23 History Magnesium(Unknown Dose) 1 tab PO DAILY 09/01/23 09/01/23 History Meclizine [Antivert] 25 mg PO TID PRN 09/01/23 09/01/23 History Omeprazole [PriLOSEC] 20 mg PO DAILY 09/01/23 09/01/23 History Pravastatin Sodium [Pravachol] 40 mg PO HS 09/01/23 09/01/23 History Vitamin D3(Unknown Dose) 1 tab PO DAILY 09/01/23 09/01/23 History acetaZOLAMIDE [Diamox] 250 mg PO DAILY 09/01/23 09/01/23 History Allergies Allergy/AdvReac Type Severity Reaction Status Date / Time advocado Allergy Unknown Uncoded 09/01/23 15:03 bananas Allergy Unknown Uncoded 09/01/23 15:03 walnuts Allergy Unknown Uncoded 09/01/23 15:03 Physical Exam Vitals: Vital Signs Temp Pulse Pulse Resp BP Pulse Ox 09/02/23 12:00 100.1 F H 92 16 105/68 96 09/02/23 10:00 101.1 F H 100 16 124/73 98 09/02/23 09:00 94 16 177/83 98 09/02/23 08:06 77 09/02/23 08:00 77 16 152/81 95 09/02/23 07:00 70 16 150/72 94 L 09/02/23 06:39 73 16 137/68 94 L 09/02/23 06:31 97.2 F L 09/02/23 02:56 92 16 136/74 95 09/02/23 01:51 92 18 193/98 95 09/01/23 21:30 62 20 122/65 98 09/01/23 14:54 97.9 F 86 18 191/83 96 Results CBC & Chem 7: 09/01/23 16:01 09/02/23 03:54 Labs: Abnormal Lab Results - Last 24 Hours (Table) 09/01/23 09/01/23 09/01/23 Range/Units 16:01 16:01 17:07 MCV 101.0 H (80.0-100.0) fL Neutrophils # 8.7 H (1.3-7.7) k/uL Lymphocytes # 0.3 L (1.0-4.8) k/uL Sodium 135 L (137-145) mmol/L Glucose 126 H (74-99) mg/dL Magnesium 1.5 L (1.6-2.3) mg/dL Total Bilirubin 1.5 H (0.2-1.3) mg/dL AST 56 H (14-36) U/L Troponin I (0.000-0.034) ng/mL Urine Protein 1+ H (Negative) Urine Ketones 2+ H (Negative) Urine Blood Small H (Negative) Urine RBC 12 H (0-5) /hpf Urine Mucus Rare H (None) /hpf 09/02/23 09/02/23 Range/Units 03:54 03:54 MCV (80.0-100.0) fL Neutrophils # (1.3-7.7) k/uL Lymphocytes # (1.0-4.8) k/uL Sodium 132 L (137-145) mmol/L Glucose 118 H (74-99) mg/dL Magnesium (1.6-2.3) mg/dL Total Bilirubin 1.5 H (0.2-1.3) mg/dL AST (14-36) U/L Troponin I 0.044 H* (0.000-0.034) ng/mL Urine Protein (Negative) Urine Ketones (Negative) Urine Blood (Negative) Urine RBC (0-5) /hpf Urine Mucus (None) /hpf
[2023-09-02] MEDS: ACETAMINOPHEN TAB 325 MG TAB PO PRN (14:03)
[2023-09-02] MEDS: SODIUM CHLORIDE 0.9% 1,000 ML IV SCH (14:19)
[2023-09-02] MEDS: PIPERACILLIN-TAZOBACTAM 3.375 GM in SODIUM CHLORIDE 0.9% 100 ML IVPB STA (14:21)
[2023-09-02] MEDS: MAGNESIUM SULFATE-D5W PMX 1 GM in DEXTROSE/WATER 1 100ML.BAG IVPB SCH (15:58)
[2023-09-02] MEDS: PIPERACILLIN-TAZOBACTAM 3.375 GM in SODIUM CHLORIDE 0.9% 100 ML IVPB SCH (18:10)
--- NOTE | 2023-09-02 19:38 | CA ---
Transthoracic Echo Report Name: Zakiya Ghotra Age: 87 Gender: F : 1935 Exam Date: 09/02/2023 11:24 Exam Location: [facility] Ht (in): 59 Wt (lb): 108 Ordering Physician: Baylee Mosqueda Attending/Referring Phys: [id number], Panda Channel [employer] St[employer]oles Tatyana Vega RDCS Procedure CPT: Indications: LV function, surgical clearance Cardiac Hx: Technical Quality: Fair Contrast 1: Total Dose (mL): Contrast 2: Total Dose (mL): MEASUREMENTS (Male / Female) Normal Values 2D ECHO LV Diastolic Diameter PLAX 3.2 cm 4.2 - 5.9 / 3.9 - 5.3 cm LV Systolic Diameter PLAX 2.6 cm IVS Diastolic Thickness 1.5 cm 0.6 - 1.0 / 0.6 - 0.9 cm LVPW Diastolic Thickness 1.6 cm 0.6 - 1.0 / 0.6 - 0.9 cm LV Relative Wall Thickness 0.9 RV Internal Dim ED PLAX 2.4 cm LVOT Diameter 1.7 cm LA Systolic Diameter LX 4.1 cm 3.0 - 4.0 / 2.7 - 3.8 cm LV Diastolic Volume MOD BP 32.9 cm??? 67 - 155 / 56 - 104 cm??? LV Systolic Volume MOD BP 10.8 cm??? 22 - 58 / 19 - 49 cm??? LV Ejection Fraction MOD BP 67.2 % >= 55 % LV Cardiac Index MOD BP 1587.5 cm???/min???m??? LV Diastolic Volume MOD 4C 34.6 cm??? LV Systolic Volume MOD 4C 12.8 cm??? LV Ejection Fraction MOD 4C 63.1 % LV Cardiac Index MOD 4C 1568.3 cm???/min???m??? LV Diastolic Length 4C 5.6 cm LV Systolic Length 4C 4.7 cm LV Diastolic Volume MOD 2C 28.7 cm??? LV Systolic Volume MOD 2C 9.0 cm??? LV Ejection Fraction MOD 2C 68.7 % LV Cardiac Index MOD 2C 1416.4 cm???/min???m??? LV Diastolic Length 2C 5.1 cm LV Systolic Length 2C 4.6 cm LA Volume 63.0 cm??? 18 - 58 / 22 - 52 cm??? LA Volume Index 43.9 cm???/m??? 16 - 28 cm???/m??? M-MODE Aortic Root Diameter MM 3.2 cm LA Systolic Diameter MM 3.6 cm LA Ao Ratio MM 1.1 AV Cusp Separation MM 1.8 cm DOPPLER AV Peak Velocity 161.3 cm/s AV Peak Gradient 10.4 mmHg AV Mean Velocity 131.4 cm/s AV Mean Gradient 7.3 mmHg AV Velocity Time Integral 33.3 cm MV Area PHT 3.0 cm??? Mitral E Point Velocity 68.6 cm/s Mitral A Point Velocity 84.7 cm/s Mitral E to A Ratio 0.8 MV Deceleration Time 248.9 ms TR Peak Velocity 330.5 cm/s TR Peak Gradient 43.7 mmHg Right Ventricular Systolic Press 47.3 mmHg PV Peak Velocity 95.9 cm/s PV Peak Gradient 3.7 mmHg FINDINGS Left Ventricle Left ventricular ejection fraction is estimated at 60-65%. Normal left ventricular wall motion. No obvious regional wall motion abnormalities. Left ventricular cavity size normal. Moderately increased septal wall thickness. Moderately increased posterior wall thickness. Right Ventricle Normal right ventricular size and function. Right ventricular systolic pressure estimated at 47 mm hg. Moderate pulmonary hypertension. Right Atrium Mild right atrial dilatation. Left Atrium Moderate left atrial dilatation. Mitral Valve Structurally normal mitral valve. Mild mitral regurgitation. Aortic Valve No aortic valve stenosis or regurgitation. Trileaflet aortic valve. Tricuspid Valve Moderate tricuspid regurgitation. Structurally normal tricuspid valve. Pulmonic Valve No pulmonic stenosis. Trace pulmonic regurgitation. Structurally normal pulmonic valve. Pericardium No pericardial or pleural effusion. Aorta Normal size aortic root and proximal ascending aorta. CONCLUSIONS Moderate LVH with preserved systolic function. Hyperdynamic LV Biatrial enlargement Moderate tricuspid regurgitation Prominent posterior pericardial stripe Previewed by: Dr. Zackary Connor MD (Electronically Signed) Final Date: 02 September 2023 19:37
[2023-09-02] MEDS: FAMOTIDINE 20 MG/2 ML VIAL IV SCH (19:47)
[2023-09-02] MEDS: PRAVASTATIN SODIUM 40 MG TAB PO SCH (19:47)
[2023-09-02] MEDS ORDERED: FAMOTIDINE 20 MG/2 ML VIAL IV SCH (21:00)
[2023-09-02] MEDS: ARTIFICIAL TEARS-HYPROMELLOSE DROPS 15 ML BTL BOTH EYES SCH (21:40)
[2023-09-02] MEDS: LATANOPROST 0.005% OPHTH DROPS 2.5 ML BTL BOTH EYES SCH (21:40)
[2023-09-02] MEDS: CALCIUM CARBONATE 500 MG CHEWABLE PO PRN (22:28)
[2023-09-03] MEDS: ENOXAPARIN 40 MG/0.4 ML SYRINGE SQ SCH (08:31)
[2023-09-03 10:57] LABS: African American GFR (CKD) >90 (>60 ml/min/1.73 sqM); Anion Gap 5 mmol/L; Blood Urea Nitrogen 16 mg/dL (7-17); Calcium 8.1 mg/dL (8.4-10.2); Carbon Dioxide 26 mmol/L (22-30); Chloride 100 mmol/L (98-107); Glucose 145 mg/dL (74-99); Non-African American GFR(CKD) 85 (>60 ml/min/1.73 sqM); Potassium 3.4 mmol/L (3.5-5.1); Sodium 131 mmol/L (137-145)
[2023-09-03] MEDS ORDERED: MAGNESIUM SULFATE-D5W PMX 1 GM in DEXTROSE/WATER 1 100ML.BAG IVPB SCH (13:45)
--- NOTE | 2023-09-03 13:48 | P.PN ---
Subjective Progress Note Date: 09/03/23 CHIEF COMPLAINT: Altered mental status HISTORY OF PRESENT ILLNESS: Surgical service following regards to patient's acute cholecystitis. Patient is complaining of right upper quadrant abdominal pain. She is now having rigors. She reports feeling nauseated and had episode of vomiting. She does have 2 positive blood cultures for gram-negative bacilli. Low-grade temps of 99.8 potassium 3.4 PHYSICAL EXAM: VITAL SIGNS: Reviewed. GENERAL: Well-developed in no acute distress. HEENT: No sclera icterus. Extraocular movements grossly intact. Moist buccal mucosa. Head is atraumatic, normocephalic. ABDOMEN: Soft. Nondistended. Nontender. NEUROLOGIC: Alert and oriented. Cranial nerves II through XII grossly intact. ASSESSMENT: 1. Acute cholecystitis. Ultrasound reported distended gallbladder with intraluminal sludge and dilated CBD. 2. Mildly elevated AST and total bilirubin 3. Hypomagnesemia 4. Mildly elevated troponin. Evaluated by cardiology. Considered moderate to high risk for surgery per cardiology 5. Hypokalemia PLAN: -Surgery was canceled yesterday because of family issues. The daughter wanted the Will changed prior to her mother undergoing surgery. At this time patient is having active rigors and severe right upper quadrant pain. She has positive blood cultures and Dr. Blancas recommends that patient undergoes laparoscopic cholecystectomy today. Dr. Blancas will be calling the daughter. Physician Activity Leader note has been reviewed by physician. Signing provider agrees with the documented findings, assessment, and plan of care. Objective - Vital Signs Vital signs: Vital Signs Temp 99.8 F H 09/03/23 12:39 Pulse 65 09/03/23 12:39 Resp 18 09/03/23 12:39 BP 143/95 09/03/23 12:39 Pulse Ox 96 09/03/23 12:39 FiO2 Intake & Output 09/02/23 09/03/23 09/03/23 18:59 06:59 18:59 Weight 48.988 kg Other: Voiding Method Toilet # Voids 2 - Labs CBC & Chem 7: 09/01/23 16:01 09/03/23 10:02 Labs: Abnormal Lab Results - Last 24 Hours (Table) 09/02/23 09/03/23 Range/Units 13:17 10:02 Sodium 131 L (137-145) mmol/L Potassium 3.4 L (3.5-5.1) mmol/L Glucose 145 H (74-99) mg/dL Calcium 8.1 L (8.4-10.2) mg/dL Troponin I 0.074 H* (0.000-0.034) ng/mL Microbiology - Last 24 Hours (Table) 09/02/23 13:50 Blood Culture Gram Stain - Preliminary Blood 09/02/23 14:15 Blood Culture Gram Stain - Preliminary Blood
[2023-09-03] MEDS: POTASSIUM CHLORIDE ER 20 MEQ TAB.ER PO STA (14:02)
[2023-09-03] MEDS: BUPIVACAINE (PF) 0.25% 30 ML VIAL SQ ONE ×4 (19:08→20:45)
[2023-09-03] MEDS: IV FLUID CONTINUATION 1,000 ML IV ONE (19:09)
[2023-09-03] MEDS ORDERED: SUCCINYLCHOLINE CHLORIDE 200 MG/10 ML VIAL IV ONE (20:22)
[2023-09-03] MEDS ORDERED: ROCURONIUM 10 MG/ML (5 ML VIAL) IV ONE (20:22)
[2023-09-03] MEDS ORDERED: PROPOFOL 10 MG/ML 20 ML VIAL IV ONE (20:22)
[2023-09-03] MEDS ORDERED: NEOSTIGMINE 1 MG/ML 10 ML VIAL ONE (20:22)
[2023-09-03] MEDS ORDERED: fentaNYL (PF) 50 MCG/ML 2 ML AMP ONE (20:22)
[2023-09-03] MEDS ORDERED: LIDOCAINE 1% INJ 10MG/ML (20 ML MDV) ONE (20:22)
[2023-09-03] MEDS ORDERED: GLYCOPYRROLATE 0.2 MG/ML 2 ML VIAL ONE (20:22)
[2023-09-03] MEDS ORDERED: PHENYLEPHRINE 10 MG/ML VIAL ONE (20:22)
[2023-09-03] MEDS ORDERED: MIDAZOLAM 2 MG/2 ML VIAL ONE (20:22)
--- NOTE | 2023-09-03 21:12 | P.PN ---
Subjective Progress Note Date: 09/03/23 Patient pleasant 87-year-old female came in with altered mental status and also having abdominal pain bilateral upper quadrants patient has a positive Tate sign on the right side patient had a CT scan of the abdomen which showed biliary sludge and patient was evaluated by general surgery, planning on laparoscopic cholecystectomy. Patient has 2 sets of troponins that are within normal limits with probably slightly elevated because of future cardiology was consulted. Cardiology evaluated the patient this elevation is probably secondary to infection. Patient had a low-grade fever today. Patient is alert oriented x 3 when I evaluate the patient patient confusion resolved patient received Zosyn and is presently on Zosyn at this time. He is Negative except for the chest. 09/03/2023 Patient is evaluated today on the medical floor. Abdominal pain has improved at this time. Blood culture positive for gram negative bacilli. Continues on IV zosyn. Echocardiogram reveals normal LV function, moderate TR. Cardiology signed off troponin elevation felt due to sepsis with no indication of acute coronary syndrome. Review of Systems Constitutional: Denied any fatigue denied any fever. Cardio vascular: denied any chest pain, palpitations Gastrointestinal: denied any nausea, vomiting, diarrhea Pulmonary: Denied any shortness of breath cough Neurologic denied any new focal deficits PHYSICAL EXAMINATION: GENERAL: The patient is alert and oriented x3, not in any acute distress. Well developed, well nourished. HEENT: Pupils are round and equally reacting to light. EOMI. No scleral icterus. No conjunctival pallor. Normocephalic, atraumatic. No pharyngeal erythema. No t hyromegaly. CARDIOVASCULAR: S1 and S2 present. No murmurs, rubs, or gallops. PULMONARY: Chest is clear to auscultation, no wheezing or crackles. ABDOMEN: Soft, tenderness in the right upper quadrant positive Tate sign, nondistended, normoactive bowel sounds. No palpable organomegaly. MUSCULOSKELETAL: No joint swelling or deformity. EXTREMITIES: No cyanosis, clubbing, or pedal edema. NEUROLOGICAL: Gross neurological examination did not reveal any focal deficits. SKIN: No rashes. Assessment and plan -Sepsis: Possibly secondary to biliary sludge cholecystitis, continue with IV Zosyn patient is scheduled to undergo lap vaishali today. -Gram negative bacteremia, repeat cultures taken, ID has been consulted continue on IV zosyn. -Mild elevation of troponin: Secondary to sepsis, cardiology signed off. -Hypertension -Hypomagnesemia normalized -Hypokalemia will be replaced -Hyperlipidemia -Hyponatremia hypovolemic continue with IV fluids. DVT prophylaxis: Lovenox -GI prophylaxis Pepcid Full Code All inpatient medications were reviewed and appropriate changes in these medications as dictated in the interval history and assessment and plan. The impression and plan of care has been dictated by Yisel Bernal, Nurse Practitioner as directed. Dr. Malika MD I have performed a history and physical examination and medical decision making of this patient, discussed the same with the dictator, and agree with the dictators assessment and plan as written, documented as a scribe. Based on total visit time, I have performed more than 50% of this visit. Objective - Vital Signs Vital signs: Vital Signs Temp 99.1 F 09/03/23 15:39 Pulse 106 H 09/03/23 15:39 Resp 16 09/03/23 15:39 BP 135/70 09/03/23 15:39 Pulse Ox 92 L 09/03/23 15:39 FiO2 Intake & Output 09/02/23 09/03/23 09/03/23 18:59 06:59 18:59 Weight 48.988 kg Other: Voiding Method Toilet Toilet # Voids 2 - Labs CBC & Chem 7: 09/01/23 16:01 09/03/23 10:02 Labs: Abnormal Lab Results - Last 24 Hours (Table) 09/03/23 Range/Units 10:02 Sodium 131 L (137-145) mmol/L Potassium 3.4 L (3.5-5.1) mmol/L Glucose 145 H (74-99) mg/dL Calcium 8.1 L (8.4-10.2) mg/dL Microbiology - Last 24 Hours (Table) 09/02/23 13:50 Blood Culture Gram Stain - Preliminary Blood Blood Culture - Preliminary Molecular ID 09/02/23 14:15 Blood Culture Gram Stain - Preliminary Blood Assessment and Plan Time with Patient: Less than 30
--- NOTE | 2023-09-03 21:14 | P.OP ---
Date of Procedure: 09/03/23 Preoperative Diagnosis: acute cholecystitis Postoperative Diagnosis: acute cholecystitis Procedure(s) Performed: laparoscopic cholecystectomy Anesthesia: NESTOR Surgeon: Bob Blancas Estimated Blood Loss (ml): 10 Pathology: other (gallbladder) Condition: stable Disposition: PACU Operative Findings: acutely inflamed hydropic gallbladder Description of Procedure: The patient was placed on the operating table. The patient received a general endotracheal tube anesthesia. The patients abdomen was prepped and draped in the usual sterile fashion. Through an infraumbilical stab incision, the fascia of the anterior abdominal wall was grasped with a pair of Kochers and then the Veress needle was placed in the peritoneal cavity. Position of the Veress needle was confirmed with positive drop test. The abdomen was then insufflated. After adequate insufflation, the 10 mm trocar was placed in the peritoneal cavity. Following this the laparoscope was placed in the peritoneal cavity. The patient was placed in the head-up, right side up position and then a 5 mm trocar was placed in the right lateral and right subcostal position under direct visualization. A 8 mm trocar was placed in the epigastric position. The gallbladder was grasped in the fundus and infundibulum. Traction on the gallbladder was placed in the lateral and the cephalad positions. The triangle of Calot was visualized.. The cystic duct was bluntly dissected until the union of the cystic duct and common bile duct was seen. A critical view of safety was achieved. The cystic duct was then divided and sealed with the Harmonic scissors. A PDS Endoloop was then placed throughout the cystic duct stump. The cystic artery divided and sealed with the Harmonic scissors. The gallbladder was then removed from the liver bed using Harmonic scissors. The gallbladder was then extracted through the epigastric port site. Operative field was checked for any bleeding spots and Harmonic scissors was used to coagulate the liver bed. The abdomen was irrigated. The trocars were removed. The skin was closed using interrupted 3-0 Vicryl suture. Dermabond dressing were applied. The patient tolerated the procedure well.
[2023-09-03] MEDS ORDERED: ONDANSETRON 4 MG/2 ML VIAL IVP PRN (21:15)
--- NOTE | 2023-09-03 21:29 | P.CONS ---
History of Present Illness - Reason for Consult Consult date: 09/03/23 - History of Present Illness Patient is a 87-year-old female with a past medical history significant for hypertension hyperlipidemia current everyday smoker presenting to the hospital 2 days ago for evaluation of dizziness when the patient was being out shopping patient was also complaining of pain to the right upper abdominal area that has been going on for the last 3 to 4 days patient describes the pain to be mostly dull aching to sharp mild to moderate intensity without any radiation did have some nausea but no vomiting and denies having any diarrhea with the symptoms the patient has been evaluated on presentation to the hospital patient was initially afebrile subsequently she did spike a fever of 101.1 F and did have low-grade fever of 99.8 daily for hide this afternoon, patient was tachycardic this afternoon but not hypotensive or hypoxic patient did have a white count of 9.7 on admission and has not been repeated since then kidney function was normal bilirubin, AST mildly elevated urine has been negative patient did have a gallbladder ultrasound gallbladder is distended with probable intraluminal sludge and CBD was dilated patient did have blood cultures drawn which came back positive gram-negative bacilli patient is currently on Zosyn infectious he was consulted for further management of antibiotic therapy Past Medical History Past Medical History: Hyperlipidemia, Hypertension History of Any Multi-Drug Resistant Organisms: None Reported Past Surgical History: Hysterectomy, Orthopedic Surgery, Tonsillectomy Additional Past Surgical History / Comment(s): dylan right leg Past Anesthesia/Blood Transfusion Reactions: No Reported Reaction Past Psychological History: No Psychological Hx Reported Smoking Status: Current every day smoker Past Alcohol Use History: None Reported Past Drug Use History: None Reported Medications and Allergies Home Medications Medication Instructions Recorded Confirmed Type Acetaminophen [Tylenol Arthritis] 650 - 1,300 mg PO Q8H PRN 09/01/23 09/01/23 History Benazepril HCl 20 mg PO DAILY 09/01/23 09/01/23 History Bimatoprost [Lumigan 0.01% Ophth 1 drop BOTH EYES HS 09/01/23 09/01/23 History Soln] Calcium(Unknown Dose) 1 tab PO DAILY 09/01/23 09/01/23 History Carboxymethylcellulose Sodium 1 drop BOTH EYES HS 09/01/23 09/01/23 History [Refresh Tears] Citalopram Hydrobromide [CeleXA] 40 mg PO DAILY 09/01/23 09/01/23 History Magnesium(Unknown Dose) 1 tab PO DAILY 09/01/23 09/01/23 History Meclizine [Antivert] 25 mg PO TID PRN 09/01/23 09/01/23 History Omeprazole [PriLOSEC] 20 mg PO DAILY 09/01/23 09/01/23 History Pravastatin Sodium [Pravachol] 40 mg PO HS 09/01/23 09/01/23 History Vitamin D3(Unknown Dose) 1 tab PO DAILY 09/01/23 09/01/23 History acetaZOLAMIDE [Diamox] 250 mg PO DAILY 09/01/23 09/01/23 History Allergies Allergy/AdvReac Type Severity Reaction Status Date / Time advocado Allergy Unknown Uncoded 09/01/23 15:03 bananas Allergy Unknown Uncoded 09/01/23 15:03 walnuts Allergy Unknown Uncoded 09/01/23 15:03 Physical Exam Vitals: Vital Signs Temp Pulse Pulse Resp BP BP BP 09/03/23 12:39 99.8 F H 65 18 143/95 09/03/23 08:25 98.2 F 73 18 181/93 09/03/23 04:10 98.3 F 73 17 149/93 139/83 09/02/23 23:53 132/65 09/02/23 23:25 98 F 83 19 175/82 09/02/23 20:36 97.8 F 74 17 145/70 09/02/23 16:52 71 16 100/65 09/02/23 15:59 99.5 F 81 16 117/62 BP Pulse Ox 09/03/23 12:39 96 09/03/23 08:25 96 09/03/23 04:10 97 09/02/23 23:53 09/02/23 23:25 98 09/02/23 20:36 98 09/02/23 16:52 97 09/02/23 15:59 117/62 93 L Intake and Output 09/02/23 09/03/23 09/03/23 22:59 06:59 14:59 Other: Voiding Method Toilet Toilet # Voids 2 Weight 48.988 kg Results CBC & Chem 7: 09/04/23 06:42 09/04/23 06:42 Labs: Abnormal Lab Results - Last 24 Hours (Table) 09/03/23 Range/Units 10:02 Sodium 131 L (137-145) mmol/L Potassium 3.4 L (3.5-5.1) mmol/L Glucose 145 H (74-99) mg/dL Calcium 8.1 L (8.4-10.2) mg/dL Microbiology - Last 24 Hours (Table) 09/02/23 13:50 Blood Culture Gram Stain - Preliminary Blood Blood Culture - Preliminary Molecular ID 09/02/23 14:15 Blood Culture Gram Stain - Preliminary Blood Assessment and Plan Plan: 1patient presented to hospital with sepsis in this patient who did have fever tachycardia now with evidence of gram-negative bacteremia source likely acute cholecystitis with concern for possible cholangitis at the patient did have mildly elevated bilirubin 1-[id number] bacteremia source likely cholecystitis/cholangitis 3-blood cultures will be repeated document clearance of bacteremia 4-await cholecystectomy General surgery is on the case 5-Zosyn 3.375 g every 8 hours for provide adequate antibiotic coverage We will follow on clinical condition and cultures to further adjust medication if needed Thank you for this consultation we will follow the patient along with you Dictation was produced using [employer] dictation software. please excuse any grammatical, word or spelling errors. Time with Patient: Greater than 30
[2023-09-03] MEDS: SODIUM CHLORIDE 0.9% 1,000 ML IV ONE (21:53)
[2023-09-03] MEDS: HYDROmorphone 1 MG/ML 1 ML SYRINGE IVP PRN (23:04)
[2023-09-04 06:56] LABS: Basophils % (A) 0 %; Eosinophils # (A) 0.1 k/uL (0-0.7); Eosinophils % (A) 1 %; HCT 40.8 % (34.0-46.0); HGB 13.4 gm/dL (11.4-16.0); Lymphocytes # (A) 0.1 k/uL (1.0-4.8); Lymphocytes % (A) 2 %; MCH 33.5 pg (25.0-35.0); MCHC 32.8 g/dL (31.0-37.0); MCV 102.2 fL (80.0-100.0); Mean Platelet Volume 7.5; Monocytes # (A) 0.3 k/uL (0-1.0); Monocytes % (A) 4 %; Neutrophils # (A) 5.6 k/uL (1.3-7.7); Neutrophils % (A) 91 %; Platelet Count 106 k/uL (150-450); RBC 3.99 m/uL (3.80-5.40); RDW 12.4 % (11.5-15.5); WBC 6.1 k/uL (3.8-10.6)
[2023-09-04 07:04] LABS: African American GFR (CKD) >90 (>60 ml/min/1.73 sqM); Anion Gap 4 mmol/L; Blood Urea Nitrogen 19 mg/dL (7-17); Calcium 7.7 mg/dL (8.4-10.2); Carbon Dioxide 24 mmol/L (22-30); Chloride 107 mmol/L (98-107); Glucose 107 mg/dL (74-99); Non-African American GFR(CKD) 83 (>60 ml/min/1.73 sqM); Potassium 3.6 mmol/L (3.5-5.1); Sodium 135 mmol/L (137-145)
[2023-09-04] MEDS: POTASSIUM CHLORIDE ER 20 MEQ TAB.ER PO STA (12:08)
--- NOTE | 2023-09-04 12:40 | P.PN ---
Subjective Progress Note Date: 09/04/23 Principal diagnosis: Reason for follow-up is sepsis gram-negative bacteremia and cholecystitis Patient is a 87-year-old female with a past medical history significant for hypertension hyperlipidemia, presented to hospital for dizziness right upper quadrant pain has been diagnosed with sepsis secondary to acute cholecystitis in this patient who did have a gram-negative bacteremia follow-up with this consultation. Patient is status post laparoscopic ostectomy completed on 09/03/2023 operative report did not mention any perforation or abscess On today's evaluation that is 09/04/2023,the patient denies any fever or any chills, patient is breathing comfortably on room air, the patient denies chest pain shortness of breath and no significant cough, patient abdominal pain is currently controlled no nausea vomiting or diarrhea. Patient white count 6.1, creatinine 0.60 blood culture with gram-negative bacilli x 2 ID sensitivities pending Objective - Vital Signs Vital signs: Vital Signs Temp 98.1 F 09/04/23 07:58 Pulse 93 09/04/23 12:07 Resp 16 09/04/23 12:07 BP 137/77 09/04/23 12:07 Pulse Ox 94 L 09/04/23 12:07 FiO2 Intake & Output 09/03/23 09/04/23 09/04/23 18:59 06:59 18:59 Intake Total 450 Output Total 300 Balance 150 Intake: IV 450 Oral 0 Output: Urine 200 Estimated Blood Loss 100 Other: Voiding Method Toilet Toilet Toilet # Voids 1 - Exam GENERAL DESCRIPTION: An elderly female lying in bed in no distress RESPIRATORY SYSTEM: Unlabored breathing , decreased breath sounds at bases HEART: S1 S2 regular rate and rhythm , ABDOMEN: Soft , mild right upper quadrant tenderness EXTREMITIES: No edema feet - Labs CBC & Chem 7: 09/04/23 06:42 09/04/23 06:42 Labs: Abnormal Lab Results - Last 24 Hours (Table) 09/04/23 09/04/23 Range/Units 06:42 06:42 MCV 102.2 H (80.0-100.0) fL Plt Count 106 L (150-450) k/uL Lymphocytes # 0.1 L (1.0-4.8) k/uL Sodium 135 L (137-145) mmol/L BUN 19 H (7-17) mg/dL Glucose 107 H (74-99) mg/dL Calcium 7.7 L (8.4-10.2) mg/dL Microbiology - Last 24 Hours (Table) 09/02/23 14:15 Blood Culture Gram Stain - Preliminary Blood Blood Culture - Preliminary Gram Neg Bacilli Gram Neg Bacilli#2 09/02/23 13:50 Blood Culture Gram Stain - Preliminary Blood Blood Culture - Preliminary Gram Neg Bacilli Gram Neg Bacilli#2 Molecular ID Assessment and Plan (1) Gram-negative bacteremia Current Visit: Yes Status: Acute Code(s): R78.81 - BACTEREMIA SNOMED Code(s): 285172091801 (2) Cholecystitis Current Visit: Yes Status: Acute Code(s): K81.9 - CHOLECYSTITIS, UNSPECIFIED SNOMED Code(s): 70004741 Plan: 1patient presented to hospital with sepsis in this patient who did have fever tachycardia now with evidence of gram-negative bacteremia source likely acute cholecystitis with concern for possible cholangitis at the patient did have mildly elevated bilirubin [id number] bacteremia source likely cholecystitis/cholangitis 3-blood cultures has been repeated to document clearance of bacteremia 4-patient is status post laparoscopic cholecystectomy completed on 09/03/2023 operative report did not mention any gangrene or abscess or drainage 5-patient to continue with Zosyn 3.375 g every 8 hours while waiting for the culture to finalize determine discharge antibiotics Dictation was produced using [employer] dictation software. please excuse any grammatical, word or spelling errors. Time with Patient: Less than 30
--- NOTE | 2023-09-04 13:27 | P.PN ---
Subjective Progress Note Date: 09/04/23 CHIEF COMPLAINT: Altered mental status HISTORY OF PRESENT ILLNESS: Patient is postop day #1 status post laparoscopic cholecystectomy for acute cholecystitis. Patient is lying in bed more comfortably. She did have some mild nausea earlier. No flatus. Pain is controlled. She feels better than yesterday. Afebrile. WBC 6.1 Hgb 13.4 PHYSICAL EXAM: VITAL SIGNS: Reviewed. GENERAL: Well-developed in no acute distress. ABDOMEN: Soft. Nondistended. Incision sites clean dry and intact NEUROLOGIC: Awake and alert ASSESSMENT: 1. Acute cholecystitis 2. Bacteremia PLAN: -Continue regular diet -Change Toradol to scheduled -Add norco for oral pain med -Courage patient to ambulate Physician Health Care / Medical Job Titles note has been reviewed by physician. Signing provider agrees with the documented findings, assessment, and plan of care. Objective - Vital Signs Vital signs: Vital Signs Temp 98.1 F 09/04/23 07:58 Pulse 93 09/04/23 12:07 Resp 16 09/04/23 12:07 BP 137/77 09/04/23 12:07 Pulse Ox 94 L 09/04/23 12:07 FiO2 Intake & Output 09/03/23 09/04/23 09/04/23 18:59 06:59 18:59 Intake Total 450 Output Total 300 Balance 150 Intake: IV 450 Oral 0 Output: Urine 200 Estimated Blood Loss 100 Other: Voiding Method Toilet Toilet Toilet # Voids 1 - Labs CBC & Chem 7: 09/04/23 06:42 09/04/23 06:42 Labs: Abnormal Lab Results - Last 24 Hours (Table) 09/04/23 09/04/23 Range/Units 06:42 06:42 MCV 102.2 H (80.0-100.0) fL Plt Count 106 L (150-450) k/uL Lymphocytes # 0.1 L (1.0-4.8) k/uL Sodium 135 L (137-145) mmol/L BUN 19 H (7-17) mg/dL Glucose 107 H (74-99) mg/dL Calcium 7.7 L (8.4-10.2) mg/dL Microbiology - Last 24 Hours (Table) 09/02/23 14:15 Blood Culture Gram Stain - Preliminary Blood Blood Culture - Preliminary Gram Neg Bacilli Gram Neg Bacilli#2 09/02/23 13:50 Blood Culture Gram Stain - Preliminary Blood Blood Culture - Preliminary Gram Neg Bacilli Gram Neg Bacilli#2 Molecular ID
--- NOTE | 2023-09-04 14:25 | P.PN ---
Subjective Progress Note Date: 09/04/23 HISTORY OF PRESENT ILLNESS: This is a 87-year-old female with a past medical history significant for hy pertension and hyperlipidemia. Patient does not follow with a leaf stamper. We have been asked to see the patient in consultation for elevated troponins. Patient examined at the bedside in the emergency room. Patient is confused at the time of examination and is a poor historian. There is no family present. According to the ER documentation, the patient initially presented to hospital with an episode of dizziness. Patient was also complaining of nausea and vomiting with right upper quadrant abdominal pain. The patient continues to report abdominal pain at the time of examination. She denies any chest pain or pressure. She denies any shortness of breath. Vital signs are stable. Patient is febrile this morning with a fever of 101.1. DIAGNOSTICS: - EKG reveals sinus mechanism with nonspecific ST-T wave changes - Chest xray negative for acute process - Gallbladder ultrasound, gallbladder is distended with probable intraluminal sludge. No sonographic Tate sign elicited. Common bile duct dilated. - Laboratory data: WBC 9.7. Hemoglobin 14.6. Platelet count 168. Sodium 132. Potassium 3.8. BUN 14. Creatinine 0.65. Magnesium 1.5. Bilirubin 1.5. AST 56. ALT 26. Troponin 0.012. 0.016. 0.044. - Current home cardiac medications include pravastatin 40 mg at night and benazepril 20 mg daily. 09/03 Patient underwent laparoscopic cholecystectomy. She has complaints of left upper quadrant abdominal pain. No chest pain no shortness of breath. Echocardiogram reveals EF of 60 to 65%, moderate LVH, moderate TR. Blood pressure 137/77, heart rate 93, pulse ox 94% on room air. PHYSICAL EXAM: VITAL SIGNS: Reviewed. GENERAL: Well-developed in no acute distress. HEENT: Head is normocephalic. Pupils are equal, round. Sclerae anicteric. Mucous membranes of the mouth are moist. Neck supple. No JVD or thyromegaly LUNGS: Respirations even and unlabored. Lungs essentially clear to auscultation bilaterally. HEART: Regular rate and rhythm. S1 and S2 heard. ABDOMEN: Soft. Nondistended. Tenderness upon palpation EXTREMITIES: Normal range of motion. No clubbing or cyanosis. Peripheral pulses intact. No lower extremity edema NEUROLOGIC: Awake and alert. Oriented x 3. ASSESSMENT: Febrile illness Abdominal pain with possible acute cholecystitis Abnormal troponin, likely secondary to above, no evidence of acute coronary syndrome Hypomagnesemia Hypertension Hyperlipidemia PLAN: An acute coronary but has been ruled out Continue home cardiac medications Cardiology will sign off this case and follow on an as-needed basis. Please reconsult for any new concerns. Nurse practitioner note has been reviewed by physician. Signing provider agrees with the documented findings, assessment, and plan of care documented by DIVISION HEAD as a scribe. Objective - Vital Signs Vital signs: Vital Signs Temp 98.1 F 09/04/23 07:58 Pulse 93 09/04/23 12:07 Resp 16 09/04/23 12:07 BP 137/77 09/04/23 12:07 Pulse Ox 94 L 09/04/23 12:07 FiO2 Intake & Output 09/03/23 09/04/23 09/04/23 18:59 06:59 18:59 Intake Total 450 Output Total 300 Balance 150 Intake: IV 450 Oral 0 Output: Urine 200 Estimated Blood Loss 100 Other: Voiding Method Toilet Toilet Toilet # Voids 1 - Labs CBC & Chem 7: 09/04/23 06:42 09/04/23 06:42 Labs: Abnormal Lab Results - Last 24 Hours (Table) 09/04/23 09/04/23 Range/Units 06:42 06:42 MCV 102.2 H (80.0-100.0) fL Plt Count 106 L (150-450) k/uL Lymphocytes # 0.1 L (1.0-4.8) k/uL Sodium 135 L (137-145) mmol/L BUN 19 H (7-17) mg/dL Glucose 107 H (74-99) mg/dL Calcium 7.7 L (8.4-10.2) mg/dL Microbiology - Last 24 Hours (Table) 09/02/23 14:15 Blood Culture Gram Stain - Preliminary Blood Blood Culture - Preliminary Gram Neg Bacilli Gram Neg Bacilli#2 09/02/23 13:50 Blood Culture Gram Stain - Preliminary Blood Blood Culture - Preliminary Gram Neg Bacilli Gram Neg Bacilli#2 Molecular ID
[2023-09-04] MEDS: KETOROLAC 15 MG/ML 1 ML VIAL IVP SCH (14:31)
--- NOTE | 2023-09-04 17:54 | P.PN ---
Subjective Progress Note Date: 09/04/23 Patient pleasant 87-year-old female came in with altered mental status and also having abdominal pain bilateral upper quadrants patient has a positive Tate sign on the right side patient had a CT scan of the abdomen which showed biliary sludge and patient was evaluated by general surgery, planning on laparoscopic cholecystectomy. Patient has 2 sets of troponins that are within normal limits with probably slightly elevated because of future cardiology was consulted. Cardiology evaluated the patient this elevation is probably secondary to infection. Patient had a low-grade fever today. Patient is alert oriented x 3 when I evaluate the patient patient confusion resolved patient received Zosyn and is presently on Zosyn at this time. He is Negative except for the chest. 09/03/2023 Patient is evaluated today on the medical floor. Abdominal pain has improved at this time. Blood culture positive for gram negative bacilli. Continues on IV zosyn. Echocardiogram reveals normal LV function, moderate TR. Cardiology signed off troponin elevation felt due to sepsis with no indication of acute coronary syndrome. 09/04/2023 Patient is evaluated today in follow up. Postoperative day #1 laproscopic cholecystectomy reporting minimal abdominal discomfort. Did not tolerate diet this am, was not hungry. She has been resting in bed. Blood cultures positive for gram negative bailli 1 and 2/ showing klebsiella oxytoca and klebsiella pneumoniae, ID following. Patient remains on IV zosyn at this time. Sodium improved to 135. Review of Systems Constitutional: Denied any fatigue denied any fever. Cardio vascular: denied any chest pain, palpitations Gastrointestinal: denied any nausea, vomiting, diarrhea Pulmonary: Denied any shortness of breath cough Neurologic denied any new focal deficits PHYSICAL EXAMINATION: GENERAL: The patient is alert and oriented x3, not in any acute distress. Well developed, well nourished. HEENT: Pupils are round and equally reacting to light. EOMI. No scleral icterus. No conjunctival pallor. Normocephalic, atraumatic. No pharyngeal erythema. No thyromegaly. CARDIOVASCULAR: S1 and S2 present. No murmurs, rubs, or gallops. PULMONARY: Chest is clear to auscultation, no wheezing or crackles. ABDOMEN: Soft, mild tenderness, nondistended, normoactive bowel sounds. No palpable organomegaly. Post surgical abdomen laproscopic incisions intact. MUSCULOSKELETAL: No joint swelling or deformity. EXTREMITIES: No cyanosis, clubbing, or pedal edema. NEUROLOGICAL: Gross neurological examination did not reveal any focal deficits. SKIN: No rashes. Assessment and plan -Sepsis: Secondary to biliary sludge cholecystitis, continue with IV Zosyn, posoperative day #1 laproscopic cholecystecomy -Gram negative bacteremia, repeat cultures taken, ID has been consulted continue on IV zosyn. -Mild elevation of troponin: Secondary to sepsis, cardiology signed off. -Hypertension -Hypomagnesemia normalized -Hypokalemia will be replaced -Hyperlipidemia -Hyponatremia hypovolemic continue with IV fluids. Sodium level improving. DVT prophylaxis: Lovenox -GI prophylaxis Pepcid Full Code All inpatient medications were reviewed and appropriate changes in these medications as dictated in the interval history and assessment and plan. PT/OT consulted as patient has been primarily bedrest since admission. Encourage patient to increase activity level and up in the chair for meals. Diet per surgery. Incentive spirometer ordered. Repeat blood cultures pending. Repeat labs in the AM. The impression and plan of care has been dictated by Yisel Bernal, Nurse Practitioner as directed. Dr. Malika MD I have performed a history and physical examination and medical decision making of this patient, discussed the same with the dictator, and agree with the dictators assessment and plan as written, documented as a scribe. Based on total visit time, I have performed more than 50% of this visit. Objective - Vital Signs Vital signs: Vital Signs Temp 98.1 F 09/04/23 07:58 Pulse 93 09/04/23 12:07 Resp 16 09/04/23 12:07 BP 137/77 09/04/23 12:07 Pulse Ox 94 L 09/04/23 12:07 FiO2 Intake & Output 09/03/23 09/04/23 09/04/23 18:59 06:59 18:59 Intake Total 450 Output Total 300 Balance 150 Intake: IV 450 Oral 0 Output: Urine 200 Estimated Blood Loss 100 Other: Voiding Method Toilet Toilet Toilet # Voids 1 - Labs CBC & Chem 7: 09/04/23 06:42 09/04/23 06:42 Labs: Abnormal Lab Results - Last 24 Hours (Table) 09/04/23 09/04/23 Range/Units 06:42 06:42 MCV 102.2 H (80.0-100.0) fL Plt Count 106 L (150-450) k/uL Lymphocytes # 0.1 L (1.0-4.8) k/uL Sodium 135 L (137-145) mmol/L BUN 19 H (7-17) mg/dL Glucose 107 H (74-99) mg/dL Calcium 7.7 L (8.4-10.2) mg/dL Microbiology - Last 24 Hours (Table) 09/02/23 14:15 Blood Culture Gram Stain - Preliminary Blood Blood Culture - Preliminary Gram Neg Bacilli Gram Neg Bacilli#2 09/02/23 13:50 Blood Culture Gram Stain - Preliminary Blood Blood Culture - Preliminary Gram Neg Bacilli Gram Neg Bacilli#2 Molecular ID Assessment and Plan Time with Patient: Less than 30
[2023-09-05 09:10] LABS: BUN/Creat Ratio 29.86 Ratio (12.00-20.00); Blood Urea Nitrogen 20.9 mg/dL (9.0-27.0); Calcium 7.6 mg/dL (8.7-10.3); Carbon Dioxide 22.3 mmol/L (21.6-31.8); Chloride 105 mmol/L (96-109); Glucose 92 mg/dL (70-110); Magnesium 2.2 mg/dL (1.5-2.4); Potassium 3.8 mmol/L (3.5-5.5); Sodium 136 mmol/L (135-145)
--- NOTE | 2023-09-05 12:38 | P.PN ---
Subjective Progress Note Date: 09/05/23 CHIEF COMPLAINT: Altered mental status HISTORY OF PRESENT ILLNESS: Patient is postop day #2 status post laparoscopic cholecystectomy for acute cholecystitis. Patient is sitting at bedside chair. She reports her pain is controlled. She is having flatus. She is eating a small amount and its mostly Jell-O. Afebrile. PHYSICAL EXAM: VITAL SIGNS: Reviewed. GENERAL: Well-developed in no acute distress. ABDOMEN: Soft. Nondistended. Incision sites clean dry and intact ASSESSMENT: 1. Acute cholecystitis 2. Bacteremia likely secondary to acute cholecystitis PLAN: -Continue regular diet. Encourage patient to try more solid foods. -Continue pain management -Antibiotics per ID service -Encourage patient to increase activity level Physician Outbound Sales Specialist note has been reviewed by physician. Signing provider agrees with the documented findings, assessment, and plan of care. Objective - Vital Signs Vital signs: Vital Signs Temp 98.2 F 09/05/23 07:33 Pulse 89 09/05/23 07:33 Resp 15 09/05/23 07:33 BP 138/79 09/05/23 07:33 Pulse Ox 96 09/05/23 07:33 FiO2 Intake & Output 09/04/23 09/05/23 09/05/23 18:59 06:59 18:59 Intake Total 240 Balance 240 Weight 54.5 kg Intake: Oral 240 Other: Voiding Method Toilet Toilet # Voids 2 0 # Bowel Movements 0 - Labs CBC & Chem 7: 09/04/23 06:42 09/05/23 04:39 Labs: Abnormal Lab Results - Last 24 Hours (Table) 09/05/23 Range/Units 04:39 BUN/Creatinine Ratio 29.86 H (12.00-20.00) Ratio Calcium 7.6 L (8.7-10.3) mg/dL Microbiology - Last 24 Hours (Table) 09/02/23 14:15 Blood Culture Gram Stain - Final Blood Blood Culture - Final Klebsiella oxytoca Klebsiella pneumoniae 09/02/23 13:50 Blood Culture Gram Stain - Final Blood Blood Culture - Final Klebsiella oxytoca Klebsiella pneumoniae Molecular ID 09/03/23 14:47 Blood Culture - Preliminary Blood
--- NOTE | 2023-09-05 14:38 | P.PN ---
Subjective Progress Note Date: 09/05/23 Principal diagnosis: Reason for follow-up is sepsis gram-negative bacteremia and cholecystitis Patient is a 87-year-old female with a past medical history significant for hypertension hyperlipidemia, presented to hospital for dizziness right upper quadrant pain has been diagnosed with sepsis secondary to acute cholecystitis in this patient who did have a gram-negative bacteremia follow-up with this consultation. Patient is status post laparoscopic ostectomy completed on 09/03/2023 operative report did not mention any perforation or abscess On today's evaluation that is 09/05/2023,the patient remains to be afebrile, patient is on room air not requiring supplemental oxygen and denies any shortness of breath no chest pain or cough.Patient denies having any nausea or vomiting, did have improvement in abdominal pain no diarrhea. Patient white count of 6.1 as of yesterday creatinine is 0.7 blood culture with Klebsiella blood culture repeat so far pending Objective - Vital Signs Vital signs: Vital Signs Temp 97.6 F 09/05/23 14:00 Pulse 102 H 09/05/23 14:00 Resp 17 09/05/23 14:00 BP 124/58 09/05/23 14:00 Pulse Ox 94 L 09/05/23 14:00 FiO2 Intake & Output 09/04/23 09/05/23 09/05/23 18:59 06:59 18:59 Intake Total 240 Balance 240 Weight 54.5 kg Intake: Oral 240 Other: Voiding Method Toilet Toilet # Voids 2 0 # Bowel Movements 0 - Exam GENERAL DESCRIPTION: An elderly female lying in bed in no distress RESPIRATORY SYSTEM: Unlabored breathing , decreased breath sounds at bases HEART: S1 S2 regular rate and rhythm , ABDOMEN: Soft , mild right upper quadrant tenderness EXTREMITIES: No edema feet - Labs CBC & Chem 7: 09/04/23 06:42 09/05/23 04:39 Labs: Abnormal Lab Results - Last 24 Hours (Table) 09/05/23 Range/Units 04:39 BUN/Creatinine Ratio 29.86 H (12.00-20.00) Ratio Calcium 7.6 L (8.7-10.3) mg/dL Microbiology - Last 24 Hours (Table) 09/02/23 14:15 Blood Culture Gram Stain - Final Blood Blood Culture - Final Klebsiella oxytoca Klebsiella pneumoniae 09/02/23 13:50 Blood Culture Gram Stain - Final Blood Blood Culture - Final Klebsiella oxytoca Klebsiella pneumoniae Molecular ID 09/03/23 14:47 Blood Culture - Preliminary Blood Assessment and Plan (1) Gram-negative bacteremia Current Visit: Yes Status: Acute Code(s): R78.81 - BACTEREMIA SNOMED Code(s): 531094036504 (2) Cholecystitis Current Visit: Yes Status: Acute Code(s): K81.9 - CHOLECYSTITIS, UNSPECIFIED SNOMED Code(s): 04927186 Plan: 1patient presented to hospital with sepsis in this patient who did have fever tachycardia now with evidence of gram-negative bacteremia source likely acute cholecystitis with concern for possible cholangitis at the patient did have mildly elevated bilirubin 2-Klebsiella bacteremia source likely cholecystitis/cholangitis 3-blood cultures has been repeated to document clearance of bacteremia and so far negative 4-patient is status post laparoscopic cholecystectomy completed on 09/03/2023 operative report did not mention any gangrene or abscess or drainage 5-patient to continue with Zosyn 3.375 g every 8 hours while inpatient finishing therapy with oral Cipro and Flagyl x 10 days on discharge Dictation was produced using [employer] dictation software. please excuse any grammatical, word or spelling errors. Time with Patient: Less than 30
[2023-09-05] MEDS: bisacodyL 10 MG SUPP RECTAL STA (17:19)
[2023-09-05] MEDS: MINERAL OIL 133 ML ENEMA RECTAL STA (17:39)
--- NOTE | 2023-09-05 20:22 | P.PN ---
Subjective Progress Note Date: 09/05/23 Patient pleasant 87-year-old female came in with altered mental status and also having abdominal pain bilateral upper quadrants patient has a positive Tate sign on the right side patient had a CT scan of the abdomen which showed biliary sludge and patient was evaluated by general surgery, planning on laparoscopic cholecystectomy. Patient has 2 sets of troponins that are within normal limits with probably slightly elevated because of future cardiology was consulted. Cardiology evaluated the patient this elevation is probably secondary to infection. Patient had a low-grade fever today. Patient is alert oriented x 3 when I evaluate the patient patient confusion resolved patient received Zosyn and is presently on Zosyn at this time. He is Negative except for the chest. 09/03/2023 Patient is evaluated today on the medical floor. Abdominal pain has improved at this time. Blood culture positive for gram negative bacilli. Continues on IV zosyn. Echocardiogram reveals normal LV function, moderate TR. Cardiology signed off troponin elevation felt due to sepsis with no indication of acute coronary syndrome. 09/04/2023 Patient is evaluated today in follow up. Postoperative day #1 laproscopic cholecystectomy reporting minimal abdominal discomfort. Did not tolerate diet this am, was not hungry. She has been resting in bed. Blood cultures positive for gram negative bailli 1 and 2/ showing klebsiella oxytoca and klebsiella pneumoniae, ID following. Patient remains on IV zosyn at this time. Sodium improved to 135. 09/05/2023 Patient is evaluated today in follow up on the medical floor. Postoperative day #2 laproscopic cholecystectomy. Patient is reporting minimal discomfort. Passing gas but has not had a BM. She has poor appetite has been mostly bed rest. Encour aged to get out of bed and up in the chair for meals. Blood culture positive for klebsiella, on IV zosyn with infectious disease. Report blood culture is negative so far. Hemodynamically she is stable. Review of Systems Constitutional: Denied any fatigue denied any fever. Cardio vascular: denied any chest pain, palpitations Gastrointestinal: denied any nausea, vomiting, diarrhea, Reports mild abdominal discomfort. Pulmonary: Denied any shortness of breath cough Neurologic denied any new focal deficits PHYSICAL EXAMINATION: GENERAL: The patient is alert and oriented x3, not in any acute distress. Well developed, well nourished. HEENT: Pupils are round and equally reacting to light. EOMI. No scleral icterus. No conjunctival pallor. Normocephalic, atraumatic. No pharyngeal erythema. No thyromegaly. CARDIOVASCULAR: S1 and S2 present. No murmurs, rubs, or gallops. PULMONARY: Chest is clear to auscultation, no wheezing or crackles. ABDOMEN: Soft, mild tenderness, nondistended, normoactive bowel sounds. No palpable organomegaly. Post surgical abdomen laproscopic incisions intact. MUSCULOSKELETAL: No joint swelling or deformity. EXTREMITIES: No cyanosis, clubbing, or pedal edema. NEUROLOGICAL: Gross neurological examination did not reveal any focal deficits. SKIN: No rashes. Assessment and plan -Sepsis: Secondary to biliary sludge cholecystitis, continue with IV Zosyn, posoperative day #2 laproscopic cholecystecomy -Gram negative bacteremia source is abdominal, repeat cultures taken, ID has been consulted continue on IV zosyn. -Mild elevation of troponin: Secondary to sepsis, cardiology signed off. -Hypertension -Hypomagnesemia normalized -Hypokalemia will be replaced -Hyperlipidemia -Hyponatremia hypovolemic continue with IV fluids. Sodium level improving. DVT prophylaxis: Lovenox -GI prophylaxis Pepcid Full Code All inpatient medications were reviewed and appropriate changes in these medications as dictated in the interval history and assessment and plan. PT/OT consulted as patient has been primarily bedrest since admission. Encourage patient to increase activity level and up in the chair for meals. Diet per surgery. Incentive spirometer ordered. Repeat blood cultures pending. Plan to transition to oral antibiotics 10 days of oral cipro and flagyl on discharge per ID. Repeat labs in the AM. The impression and plan of care has been dictated by Yisel Bernal, Nurse Practitioner as directed. Dr. Malika MD I have performed a history and physical examination and medical decision making of this patient, discussed the same with the dictator, and agree with the dictators assessment and plan as written, documented as a scribe. Based on total visit time, I have performed more than 50% of this visit. Objective - Vital Signs Vital signs: Vital Signs Temp 97.6 F 09/05/23 14:00 Pulse 102 H 09/05/23 14:00 Resp 17 09/05/23 14:00 BP 124/58 09/05/23 14:00 Pulse Ox 94 L 09/05/23 14:00 FiO2 Intake & Output 09/04/23 09/05/23 09/05/23 18:59 06:59 18:59 Intake Total 240 Balance 240 Weight 54.5 kg Intake: Oral 240 Other: Voiding Method Toilet Toilet # Voids 2 0 # Bowel Movements 0 - Labs CBC & Chem 7: 09/04/23 06:42 09/05/23 04:39 Labs: Abnormal Lab Results - Last 24 Hours (Table) 09/05/23 Range/Units 04:39 BUN/Creatinine Ratio 29.86 H (12.00-20.00) Ratio Calcium 7.6 L (8.7-10.3) mg/dL Microbiology - Last 24 Hours (Table) 09/02/23 14:15 Blood Culture Gram Stain - Final Blood Blood Culture - Final Klebsiella oxytoca Klebsiella pneumoniae 09/02/23 13:50 Blood Culture Gram Stain - Final Blood Blood Culture - Final Klebsiella oxytoca Klebsiella pneumoniae Molecular ID 09/03/23 14:47 Blood Culture - Preliminary Blood Assessment and Plan Time with Patient: Less than 30
[2023-09-05 21:22] VITALS: RESP 16
[2023-09-06] MEDS: HYDROcodone/APAP 5-325MG 1 EACH TAB PO PRN (05:09)
[2023-09-06 08:08] VITALS: BP 119/57; PULSE 85; TEMP 98.2
[2023-09-06 09:29] LABS: BUN/Creat Ratio 32.14 Ratio (12.00-20.00); Blood Urea Nitrogen 22.5 mg/dL (9.0-27.0); Calcium 7.6 mg/dL (8.7-10.3); Carbon Dioxide 21.6 mmol/L (21.6-31.8); Chloride 104 mmol/L (96-109); Glucose 89 mg/dL (70-110); Potassium 3.3 mmol/L (3.5-5.5); Sodium 134 mmol/L (135-145)
--- NOTE | 2023-09-06 15:47 | P.PN ---
Subjective Progress Note Date: 09/06/23 CHIEF COMPLAINT: Altered mental status HISTORY OF PRESENT ILLNESS: Patient is postop day #3 status post laparoscopic cholecystectomy for acute cholecystitis. Patient is sitting at bedside chair. She reports her pain is controlled. She is having flatus. She is tolerating diet. Afebrile. PHYSICAL EXAM: VITAL SIGNS: Reviewed. GENERAL: Well-developed in no acute distress. ABDOMEN: Soft. Nondistended. Incision sites clean dry and intact ASSESSMENT: 1. Acute cholecystitis 2. Bacteremia likely secondary to acute cholecystitis PLAN: -Patient can be discharged from surgical standpoint -Antibiotics per ID service Physician Scrap Wheeler note has been reviewed by physician. Signing provider agrees with the documented findings, assessment, and plan of care. Objective - Vital Signs Vital signs: Vital Signs Temp 98.2 F 09/06/23 07:41 Pulse 85 09/06/23 07:41 Resp 16 09/06/23 07:41 BP 119/57 09/06/23 07:41 Pulse Ox 94 L 09/06/23 07:41 FiO2 Intake & Output 09/05/23 09/06/23 09/06/23 18:59 06:59 18:59 Intake Total 900 Balance 900 Intake: IV 900 0.9 Normal Saline 900 Other: Voiding Method Toilet # Voids 4 2 # Bowel Movements 1 - Labs CBC & Chem 7: 09/04/23 06:42 09/06/23 05:39 Labs: Abnormal Lab Results - Last 24 Hours (Table) 09/06/23 Range/Units 05:39 Sodium 134 L (135-145) mmol/L Potassium 3.3 L (3.5-5.5) mmol/L BUN/Creatinine Ratio 32.14 H (12.00-20.00) Ratio Calcium 7.6 L (8.7-10.3) mg/dL Microbiology - Last 24 Hours (Table) 09/03/23 14:47 Blood Culture - Preliminary Blood 09/04/23 09:33 Blood Culture - Preliminary Blood
[2023-09-06] MEDS ORDERED: POTASSIUM CHLORIDE ER 20 MEQ TAB.ER PO SCH (16:00)
--- NOTE | 2023-09-07 21:25 | P.PN ---
Subjective Progress Note Date: 09/06/23 Principal diagnosis: Reason for follow-up is sepsis gram-negative bacteremia and cholecystitis Patient is a 87-year-old female with a past medical history significant for hypertension hyperlipidemia, presented to hospital for dizziness right upper quadrant pain has been diagnosed with sepsis secondary to acute cholecystitis in this patient who did have a gram-negative bacteremia follow-up with this consultation. Patient is status post laparoscopic ostectomy completed on 09/03/2023 operative report did not mention any perforation or abscess On today's evaluation that is 09/06/2023, the patient continues to be afebrile, the patient is on room air and breathing comfortably, the Pt denies having any chest pain or cough, the patient denies having any abdominal pain no vomiting or any diarrhea has been reported by the nursing staff, feeling better wants to go home Patient did have a creatinine 0.7 no CBC was done today blood culture repeat has been negative Objective - Vital Signs Vital signs: Vital Signs Temp 98.2 F 09/06/23 07:41 Pulse 85 09/06/23 07:41 Resp 16 09/06/23 07:41 BP 119/57 09/06/23 07:41 Pulse Ox 94 L 09/06/23 07:41 FiO2 Intake & Output 09/05/23 09/06/23 09/06/23 18:59 06:59 18:59 Intake Total 900 Balance 900 Intake: IV 900 0.9 Normal Saline 900 Other: Voiding Method Toilet # Voids 4 2 # Bowel Movements 1 - Exam GENERAL DESCRIPTION: An elderly female lying in bed in no distress RESPIRATORY SYSTEM: Unlabored breathing , decreased breath sounds at bases HEART: S1 S2 regular rate and rhythm , ABDOMEN: Soft , mild right upper quadrant tenderness EXTREMITIES: No edema feet - Labs CBC & Chem 7: 09/04/23 06:42 09/06/23 05:39 Labs: Abnormal Lab Results - Last 24 Hours (Table) 09/06/23 Range/Units 05:39 Sodium 134 L (135-145) mmol/L Potassium 3.3 L (3.5-5.5) mmol/L BUN/Creatinine Ratio 32.14 H (12.00-20.00) Ratio Calcium 7.6 L (8.7-10.3) mg/dL Microbiology - Last 24 Hours (Table) 09/03/23 14:47 Blood Culture - Preliminary Blood 09/04/23 09:33 Blood Culture - Preliminary Blood Assessment and Plan (1) Gram-negative bacteremia Status: Acute Code(s): R78.81 - BACTEREMIA SNOMED Code(s): 623775976679 (2) Cholecystitis Status: Acute Code(s): K81.9 - CHOLECYSTITIS, UNSPECIFIED SNOMED Code(s): 91301166 Plan: 1patient presented to hospital with sepsis in this patient who did have fever tachycardia now with evidence of gram-negative bacteremia source likely acute ch olecystitis with concern for possible cholangitis at the patient did have mildly elevated bilirubin 2-Klebsiella bacteremia source likely cholecystitis/cholangitis 3-blood cultures has been repeated to document clearance of bacteremia and so far negative 4-patient is status post laparoscopic cholecystectomy completed on 09/03/2023 operative report did not mention any gangrene or abscess or drainage 5-patient to finishing therapy with oral Cipro and Flagyl x 10 days on discharge discussed with SALES PERFORMANCE MANAGER for admitting team working on discharge Dictation was produced using [employer] dictation software. please excuse any grammatical, word or spelling errors. Time with Patient: Less than 30
--- NOTE | 2023-09-09 09:10 | P.DS ---
Providers Date of admission: 09/02/23 14:14 Attending physician: Marguerite Zelaya Consults: 09/01/23 21:15 Consult Physician Routine Consulting Provider: Bob Blancas Consult Reason/Comments: Abdominal pain Do you want consulting provider notified?: Yes 09/03/23 13:49 Consult Physician Routine Consulting Provider: Kelly Borrego Consult Reason/Comments: gram negative bacteremia Do you want consulting provider notified?: Yes Primary care physician: Stated None Hospital Course: Final Diagnosis -Sepsis: Secondary to biliary sludge cholecystitis posoperative day #3 laproscopic cholecystecomy -Gram negative bacteremia source is abdominal, cultures showing klebsiella -Mild elevation of troponin: Secondary to sepsis, cardiology signed off. -Hypertension -Hypomagnesemia normalized -Hypokalemia will be replaced -Hyperlipidemia -Hyponatremia hypovolemic continue with IV fluids. Sodium level improving. Discharge Disposition Patient stable for discharge home medically. Patient will follow-up with general surgery for 1 week diet as tolerated. Patient will continue course of antibiotics with oral Cipro and oral Flagyl and follow-up close with infectious disease in 1 week. Patient is with a BMP in 1 week. Patient is given a list of local area providers to follow-up with. She has not established care since moving here from [place]. She is given a 30-day supply for home medications at discharge. Hospital Course Patient pleasant 87-year-old female came in with altered mental status and also having abdominal pain bilateral upper quadrants patient has a positive Tate sign on the right side patient had a CT scan of the abdomen which showed biliary sludge and patient was evaluated by general surgery. Patient has 2 sets of troponins that are within normal limits with probably slightly elevated because of future cardiology was consulted. Cardiology evaluated the patient this elevation is probably secondary to infection. Patient had a low-grade fever today. Patient was started on IV Zosyn was found to have positive blood cultures for Klebsiella infectious disease was consulted and continued on Zosyn this admission with a short course of oral Cipro and oral Flagyl on discharge. Patient underwent laparoscopic cholecystectomy postoperatively she is having minimal abdominal discomfort she has been tolerating diet. Patient has recently moved here from [place] and has not been established with a primary care provider yet. She is out of all of her home medications and will be given a 30- day prescription on discharge and given a list of local area providers. She w ill follow-up with surgery in 1 week. Follow-up blood work reveals a white blood cell count of 6.1, hemoglobin 13.4, sodium level 134, potassium 3.3, magnesium 2.2. Renal function remains normal. Hemodynamically this patient is stable and cleared for discharge. Please see medication reconciliation for a list of current medications. Thank you for allowing us to participate in the care of this patient. The impression and plan of care has been dictated by Yisel Bernal, Nurse Practitioner as directed. Dr. Malika MD I have performed a history and physical examination and medical decision making of this patient, discussed the same with the dictator, and agree with the dictators assessment and plan as written, documented as a scribe. Based on total visit time, I have performed more than 50% of this visit. Patient Condition at Discharge: Fair Plan - Discharge Summary Discharge Rx Participant: Yes New Discharge Prescriptions: New metroNIDAZOLE [Flagyl] 500 mg PO TID 10 Days #30 tab Ciprofloxacin HCl [Cipro] 500 mg PO BID 10 Days #20 tab HYDROcodone/APAP 5-325MG [Gilbert 5-325] 1 each PO Q6HR PRN #12 tab PRN Reason: Pain Calcium Carbonate [Tums] 500 mg PO QID PRN tab PRN Reason: Heartburn Continue Carboxymethylcellulose Sodium [Refresh Tears] 1 drop BOTH EYES HS Magnesium(Unknown Dose) 1 tab PO DAILY Acetaminophen [Tylenol Arthritis] 650 - 1,300 mg PO Q8H PRN PRN Reason: Pain Pravastatin Sodium [Pravachol] 40 mg PO HS #30 tab Omeprazole [PriLOSEC] 20 mg PO DAILY #30 Vitamin D3(Unknown Dose) 1 tab PO DAILY Calcium(Unknown Dose) 1 tab PO DAILY Meclizine [Antivert] 25 mg PO TID PRN #20 tab PRN Reason: Vertigo Benazepril HCl 20 mg PO DAILY #30 tab Citalopram Hydrobromide [CeleXA] 40 mg PO DAILY #30 tab Bimatoprost [Lumigan 0.01% Ophth Soln] 1 drop BOTH EYES HS #1 each Discontinued acetaZOLAMIDE [Diamox] 250 mg PO DAILY Discharge Medication List Acetaminophen [Tylenol Arthritis] 650 - 1,300 mg PO Q8H PRN 09/01/23 [History] Calcium(Unknown Dose) 1 tab PO DAILY 09/01/23 [History] Carboxymethylcellulose Sodium [Refresh Tears] 1 drop BOTH EYES HS 09/01/23 [History] Magnesium(Unknown Dose) 1 tab PO DAILY 09/01/23 [History] Vitamin D3(Unknown Dose) 1 tab PO DAILY 09/01/23 [History] Benazepril HCl 20 mg PO DAILY #30 tab 09/06/23 [Rx] Bimatoprost [Lumigan 0.01% Ophth Soln] 1 drop BOTH EYES HS #1 each 09/06/23 [Rx] Calcium Carbonate [Tums] 500 mg PO QID PRN tab 09/06/23 [Rx] Ciprofloxacin HCl [Cipro] 500 mg PO BID 10 Days #20 tab 09/06/23 [Rx] Citalopram Hydrobromide [CeleXA] 40 mg PO DAILY #30 tab 09/06/23 [Rx] HYDROcodone/APAP 5-325MG [Gilbert 5-325] 1 each PO Q6HR PRN #12 tab 09/06/23 [Rx] Meclizine [Antivert] 25 mg PO TID PRN #20 tab 09/06/23 [Rx] Omeprazole [PriLOSEC] 20 mg PO DAILY #30 09/06/23 [Rx] Pravastatin Sodium [Pravachol] 40 mg PO HS #30 tab 09/06/23 [Rx] metroNIDAZOLE [Flagyl] 500 mg PO TID 10 Days #30 tab 09/06/23 [Rx] Follow up Appointment(s)/Referral(s): Estefani Smith MD [STAFF PHYSICIAN] - 1-2 Days (Please schedule as a new patient appointment ) None,Stated [Primary Care Provider] - 1-2 days Kelly Borrego MD [STAFF PHYSICIAN] - 1 Week (Infectious disease doctor. Office closed Saturday. Please call office Saturday for appointment.) Bob Blancas MD [STAFF PHYSICIAN] - 09/12/23 2:45 pm (Surgeon) Ambulatory/Diagnostic Orders: Basic Metabolic Panel [LAB.AMB] Time Frame: 3 Days, Location: None Selected Patient Instructions/Handouts: *Surgery [facility] - Laparoscopic Cholecystectomy Discharge Instructions Activity/Diet/Wound Care/Special Instructions: Continue diet as tolerated Continue on norco as needed every 6 hours for moderate to severe pain Can use tylenol for mild pain. Continue to use incentive spirometer 10 x an hour while awake Increase activity level Establish care with a PCP Discharge/Stand Alone Forms: PH Area PCPs Discharge Disposition: HOME SELF-CARE
== END 2023-09-06 17:24 | disposition home or self-care (01) | DRG 854 ==
LOC: EC 14:35 → 6NMEDSUR 21:15 → 3SCARD 09-02 11:05 → OBSVTOIN 09-02 14:14 → 3SCARD 09-02 14:30 → 4SSUR 09-04 19:41
PROVIDERS: ADMIT Hospitalist; ATTEND Hospitalist
PROC: 0FT44ZZ Resection of Gallbladder, Percutaneous Endoscopic Approach (ICD-10-PCS; principal; 2023-09-03 11:10)
DX: A41.59 Other Gram-negative sepsis (principal); E87.1 Hypo-osmolality and hyponatremia; K81.0 Acute cholecystitis; K82.1 Hydrops of gallbladder; E78.5 Hyperlipidemia, unspecified; E83.42 Hypomagnesemia; E86.1 Hypovolemia; E87.6 Hypokalemia; F17.200 Nicotine dependence, unspecified, uncomplicated; I10 Essential (primary) hypertension; I25.10 Atherosclerotic heart disease of native coronary artery without angina pectoris; R79.89 Other specified abnormal findings of blood chemistry; K83.8 Other specified diseases of biliary tract; R74.01 Elevation of levels of liver transaminase levels; B96.1 Klebsiella pneumoniae [K. pneumoniae] as the cause of diseases classified elsewhere; Z79.899 Other long term (current) drug therapy
CPT/HCPCS: 36415; 71046; 74018; 76705; 80048; 80053; 81001; 82550; 83690; 83735; 84484; 85025; 87040; 87077; 87186; 88304; 93005; 93306; 96361; 96365; 96366; 96367; 96375; 99285

== ENCOUNTER → 2023-10-11 | Outpatient (CLI) | payer MEDICARE, OTHER ==
--- NOTE | 2023-10-11 17:52 | XR ---
EXAMINATION TYPE: XR Hip Bilateral and AP pelvis DATE OF EXAM: 10/11/2023 5:39 PM CLINICAL INDICATION:Female, 87 years old with history of M25.551 G89.29 PAIN IN RIGHT HIP OTHER CHRON IC MADHURI; [facility] COMPARISON: None. TECHNIQUE: XR Hip Bilateral and AP pelvis; hip was examined in the frontal and lateral projections an d a AP pelvis. FINDINGS: No evidence for acute process, joint dislocation or significant soft tissue swelling. Osteo phyte formation of the superior acetabulum of the hip. There is mild joint space narrowing. IMPRESSION: 1. No evidence for acute process. 2. Mild hip osteoarthrosis.
== END | disposition home or self-care (01) ==
LOC: RADXRMAIN 17:01
PROVIDERS: ATTEND Family Medicine
DX: M16.0 Bilateral primary osteoarthritis of hip (principal)
CPT/HCPCS: 73521

== ENCOUNTER → 2024-01-02 | Outpatient (CLI) | payer MEDICARE, OTHER ==
--- NOTE | 2024-01-29 15:33 | US ---
Patient: Zakiya Ghotra Ordering Physician: Unknown, Unknown ID: [id number] Phone, Pager: Phone: N/A Pager: N/A : [phone] Age/Gender: 88Y, F Primary Location: N/A Procedure: US venous doppler duple x LE BI Study Date: 01/02/2024 12:56:00 PM Order EXAMINATION TYPE: US venous doppler duplex LE BI DATE OF EXAM: 01/02/2024 12:34 PM COMPARISON: NONE CLINICAL INDICATION: Unknown, old with history of ; SIDE PERFORMED: TECHNIQUE: The lower extremity deep venous system is examined utilizing real time linear array sonog germán with graded compression, doppler sonography and color-flow sonography. VESSELS IMAGED: Common Femoral Vein Deep Femoral Vein Greater Saphenous Vein * Femoral Vein Popliteal Vein Small Saphenous Vein * Proximal Calf Veins (* superficial vessels) Right Leg: No DVT seen Left Leg: No DVT seen IMPRESSION: Grayscale, color doppler, spectral doppler imaging performed of the deep veins of the lo wer extremities. There is normal flow, compressibility, vascular waveforms.
== END | disposition home or self-care (01) ==
LOC: RADUSWWP 10:42
PROVIDERS: ATTEND Student in an Organized Health Care Education/Training Program
DX: R60.0 Localized edema (principal)
CPT/HCPCS: 93970